=== PATIENT | female | born 1995 | race Caucasian/White ===

== ENCOUNTER 2019-09-27 11:48 | Emergency (ER) | payer OTHER, SELFPAY ==
[2019-09-27 11:55] VITALS: BP 120/59; PULSE 85; RESP 14; TEMP 36.4; O2SAT 98
--- NOTE | 2019-09-27 11:55 | ED.URI ---
HPI - URI/Sore Throat General Chief Complaint: Upper Respiratory Infection Stated Complaint: sore throat and ear pain Time Seen by Provider: 09/27/19 11:55 Source: patient and RN notes reviewed History of Present Illness HPI Narrative: Patient is a 24-year-old female presents the urgent care with complaints of left ear pain and sore throat. Patient states her symptoms started Friday with a sore throat and she woke up last night with left ear pain. Patient has been using [id number] eardrops to the left ear. Denies any known fever, nausea, vomiting. No other acute complaints. No acute distress noted. Patient aware the plan of care. Related Data Home Medications Medication Instructions Recorded Confirmed bupropion HCl 75 mg PO DAILY 09/27/19 09/27/19 etonogestrel [Nexplanon] SUBDERMAL 09/27/19 naproxen 500 mg PO BID PRN 09/27/19 09/27/19 sertraline 50 mg PO DAILY 09/27/19 09/27/19 Allergies Allergy/AdvReac Type Severity Reaction Status Date / Time amoxicillin Allergy Mild Hives / Verified 09/27/19 12:04 Red Face Penicillins Allergy Unknown Hives / Verified 09/27/19 12:04 Red Face [place] Allergy Severe Hives / Uncoded 04/02/19 09:49 Red Face Review of Systems Review of Systems: Narrative: CONSTITUTIONAL: Denies fever, chills, or sweats. EYES: Denies visual changes, redness, or discharge. ENT: Reports of left otalgia and sore throat CARDIOVASCULAR: Denies chest pain, palpitations, or edema. RESPIRATORY: Denies cough or dyspnea. GASTROINTESTINAL: Denies abdominal pain, nausea, vomiting, or diarrhea. GENITOURINARY: Denies dysuria or hematuria. SKIN: Denies rash or itching. MUSCULOSKELETAL: Denies back pain, joint pain, or myalgia. NEUROLOGIC: Denies headache, numbness, or weakness. All other systems reviewed are negative, except as documented in HPI. PMFSH Comments At the time of my signature, I reviewed and agree with the nursing past medical, surgical, social, and family history. There is no relevant family history pertinent to the patient complaint. Exam Narrative: Exam Narrative: GENERAL: This is a well-nourished, well-developed patient, in no apparent distress. HEAD: normocephalic, atraumatic. EYES: PERRL. Sclera clear/white. Vision is grossly intact. EARS: External ears normal, auditory canals clear and without drainage, mild fluid noted behind left TM without otitis, right TMs normal without perforation. Hearing grossly intact. NOSE: External nose normal with no obvious nasal discharge, nares without redness, no rhinorrhea. THROAT: Mucous membranes moist, moderate postnasal drainage NECK: Neck supple, non-tender without lymphadenopathy CARDIOVASCULAR: Regular rate and rhythm without murmurs, gallops, or rubs. RESPIRATORY: Clear to auscultation. Breath sounds equal bilaterally. No wheezes, rales, or rhonchi. SKIN: warm, intact with no suspicious lesions or rash, good texture and turgor. NEURO: awake, alert, and oriented to person, place and time. There were no obvious focal neurologic abnormalities. EXTREMITIES: No clubbing, cyanosis, or edema. Course Vital Signs Vital signs: Vital Signs Temperature 97.6 F 09/27/19 11:55 Pulse Rate 85 09/27/19 11:55 Respiratory Rate 14 09/27/19 11:55 Blood Pressure 120/59 L 09/27/19 11:55 Pulse Oximetry 98 09/27/19 11:55 Temperature 97.6 F 09/27/19 11:55 Pulse Rate 85 09/27/19 11:55 Respiratory Rate 14 09/27/19 11:55 Blood Pressure 120/59 L 09/27/19 11:55 Pulse Oximetry 98 09/27/19 11:55 Reviewed MDM - URI/Sore Throat MDM Narrative Medical decision making narrative: Reviewed lab results with the patient. She is aware that her strep swab was negative. Educated her on culture and we will call within 72 hours of culture is positive and antibiotics are necessary. Advised patient to use Claritin and ibuprofen [id number] for symptom relief and pain. May use warm compress to the left ear as needed for comfort. Do no
== END 2019-09-27 12:28 | disposition home or self-care (01) ==
PROVIDERS: Emergency Provider Nurse Practitioner Family
DX: J02.9 Acute pharyngitis, unspecified (principal)
CPT/HCPCS: 87081; 87880; 99213; G0463

== ENCOUNTER 2020-02-25 08:11 | Emergency (ER) | payer OTHER, SELFPAY ==
[2020-02-25 08:21] VITALS: BP 103/66; PULSE 117; RESP 14; TEMP 36.8; O2SAT 98
--- NOTE | 2020-02-25 08:24 | ED.URI ---
HPI - URI/Sore Throat General Chief Complaint: Upper Respiratory Infection Stated Complaint: Sore throat Time Seen by Provider: 02/25/20 08:40 Source: patient and RN notes reviewed Mode of arrival: ambulatory Limitations: no limitations History of Present Illness MD elicited complaint: sore throat Related Data Home Medications Medication Instructions Recorded Confirmed etonogestrel [Nexplanon] 1 implant SUBDERMAL ONCE 02/25/20 02/25/20 Allergies Allergy/AdvReac Type Severity Reaction Status Date / Time amoxicillin Allergy Mild Hives / Verified 02/25/20 08:36 Red Face Penicillins Allergy Unknown Hives / Verified 02/25/20 08:36 Red Face [place] Allergy Severe Hives / Uncoded 02/25/20 08:36 Red Face Review of Systems Review of Systems: Narrative: CONSTITUTIONAL: Denies malaise, chills, sweats, or fever. EYES: Denies visual changes, redness, or discharge. ENT: Reports rhinorrhea, sore throat. Denies congestion, sinus pain, otalgia. CARDIOVASCULAR: Denies chest pain, palpitations, or edema. RESPIRATORY: Reports cough. Denies dyspnea. GASTROINTESTINAL: Denies abdominal pain, nausea, vomiting, diarrhea SKIN: Denies rash or itching. MUSCULOSKELETAL: Denies myalgia. NEUROLOGIC: Reports headache. All systems reviewed & are unremarkable except as noted in HPI and below PMFSH Comments At time of signature, agree with nursing past medical, surgical, social and family history. There is no relevant family history pertinent to the presenting complaint Exam Narrative: Exam Narrative: GENERAL: Well-appearing, well-nourished, and in no acute distress. HEAD: Normocephalic EYES: PERRLA, conjunctivae clear ENT: Nares clear, turbinates erythematous, clear discharge. Mucous membranes moist. TM pearly perez with dull light reflex bilaterally; no tragal tenderness. Oropharynx mild erythematous without lesions. Tonsils not enlarged and without exudate, no drooling, no hoarseness, no trismus, uvula midline. NECK: Supple. No lymphadenopathy CHEST: Clear to auscultation, breath sounds equal. No wheezing, rhonchi, rales, or stridor. No respiratory distress, speaks in full sentences. Cough noted HEART: Regular rate and rhythm. No murmur heard. SKIN: Warm, dry, no rash. NEURO: Alert and oriented x3. PSYCH: Normal mood and affect Course Course Emergency Course: Patient is aware of diagnosis, understands and agrees to treatment plan. Anticipatory guidance given. Patient agrees to follow-up as directed and is aware of reasons to seek care at the emergency department. Portions of this record may have been created with voice recognition software Vital Signs Vital signs: Vital Signs Temperature 98.3 F 02/25/20 08:21 Pulse Rate 117 H 02/25/20 08:21 Respiratory Rate 14 02/25/20 08:21 Blood Pressure 103/66 02/25/20 08:21 Pulse Oximetry 98 02/25/20 08:21 Temperature 98.3 F 02/25/20 08:21 Pulse Rate 117 H 02/25/20 08:21 Respiratory Rate 14 02/25/20 08:21 Blood Pressure 103/66 02/25/20 08:21 Pulse Oximetry 98 02/25/20 08:21 Reviewed. MDM - URI/Sore Throat MDM Narrative Medical decision making narrative: Differential diagnosis considered: Strep pharyngitis, allergic rhinitis, upper respiratory tract infection, sinusitis, rhinosinusitis, nasopharyngitis. viral pharyngitis, otitis media, otitis externa, pneumonia, bronchitis, viral cough syndrome, viral syndrome, and influenza. Exam findings show no acute concerns or changes; patient is non-toxic appearing and is in no distress. Patient is appropriate for outpatient treatment and follow-up. Lab Data Attestation: I reviewed the patient's lab results. Labs: Strep Screen Presumptive Negative *(Reference Range: Negative)* Critical Care Time Critical Care Time Critical Care Time: No Discharge Plan Discharge Clinical Impression: Upper respiratory infection Qualifiers: URI type: unspecified URI Qualified Code(s): J06.9
== END 2020-02-25 08:55 | disposition home or self-care (01) ==
PROVIDERS: Emergency Provider Nurse Practitioner
DX: J06.9 Acute upper respiratory infection, unspecified (principal); Z20.828 Contact with and (suspected) exposure to other viral communicable diseases
CPT/HCPCS: 87081; 87880; 99213; G0463

== ENCOUNTER 2020-05-01 00:55 | Emergency (ER) | payer OTHER, SELFPAY ==
[2020-05-01 00:55] VITALS: BP 117/86; PULSE 84; RESP 20; TEMP 36.9; O2SAT 97
--- NOTE | 2020-05-01 01:18 | ED.SKABFB ---
HPI - Skin/Abscess/Foreign Bdy General Chief complaint: Skin/Abscess/Foreign Body Stated complaint: HIVES Time Seen by Provider: 05/01/20 01:18 History of Present Illness HPI narrative: 24-year-old female patient is here with chief complaints of breaking out in hives around midnight. She states that they are disappearing gradually. She is not sure what triggered them. She states she has had a similar episode in the past. Apparently patient had a by mild cough and felt some soreness in the throat and she called the hotline for her insurance and she was advised to come to the ER. She has not taken any Benadryl or any other medication to help prevent the itching. The patient is on control pills and has been on the same for a long time. There has been no new medications added to her regimen not has there been any changes in her diet. Patient does deny the feeling of tightness in her throat or in the chest. She denies any wheezing. Related Data Home Medications Medication Instructions Recorded Confirmed etonogestrel [Nexplanon] 1 implant SUBDERMAL ONCE 02/25/20 05/01/20 Allergies Allergy/AdvReac Type Severity Reaction Status Date / Time amoxicillin Allergy Mild Hives / Verified 02/25/20 08:36 Red Face Penicillins Allergy Unknown Hives / Verified 02/25/20 08:36 Red Face [place] Allergy Severe Hives / Uncoded 02/25/20 08:36 Red Face Review of Systems Review of Systems: All systems reviewed & are unremarkable except as noted in HPI and below PMFSH Past Medical History Medical History No pertinent past medical history Surgical History Surgical History No pertinent past surgical history Social History Social History (Updated 05/01/20 @ 01:24 by Keyonna New MD) Smoking status: Never smoker Alcohol intake: never Substance use: never Living arrangements: with family Exam Narrative: Exam Narrative: Patient is alert and oriented time place and person. She does not appear in any acute distress. Her vital signs are stable. HEENT is within normal limits. Oral mucous membranes are moist. The uvula is midline and there is no swelling noted to either of the uvula or to the mucosa around it. There is no stridor noted. Breath sounds are audible bilaterally and are not associated with any wheezes or rhonchi. There is no labored breathing or respiratory distress. There is no use of accessory muscles. Chest wall is nontender. Heart tones are normal. Abdomen is soft nontender. Extremities Sineff with Penilla within normal limits. Skin shows a few areas of high is that her mostly around the waist and fine form under the breasts bilaterally. Course Course Emergency Course: Patient has been encouraged to go home and take 1 dose of Benadryl. She is also advised to stay hydrated. She is advised to follow-up with her primary care physician as needed. Discharge Plan Discharge Clinical Impression: Urticaria Patient Disposition: Home, Self-Care Condition: Stable Instructions: Urticaria (ED) Additional Instructions: Home to rest Stay well hydrated Take benadryl for itching and may repeat in 6-8 hours Prescriptions: No Action Nexplanon 68 mg Implant 1 implant SUBDERMAL ONCE RF: 0 Follow-up/Referrals: UNKNOWN,DOCTOR [Primary Care Provider] - Time of Disposition: :29
[2020-05-01 01:29] VITALS: O2SAT 100
== END 2020-05-01 01:32 | disposition home or self-care (01) ==
PROVIDERS: Emergency Provider Emergency Medicine
DX: L50.9 Urticaria, unspecified (principal)
CPT/HCPCS: 99281; 99282

== ENCOUNTER 2020-11-21 16:09 | Emergency (ER) | payer OTHER, SELFPAY ==
--- NOTE | 2020-11-21 16:13 | ED.ABDPAIN ---
HPI - Abdominal Pain General Chief Complaint: Nausea/Vomiting/Diarrhea Stated Complaint: diarhhea and stomach pain Time Seen by Provider: 11/21/20 16:14 Source: patient and RN notes reviewed History of Present Illness HPI narrative: Patient is a 25-year-old female who presents the urgent care with complaints of diarrhea and intermittent abdominal cramps. Patient states that it started on Friday and she was having multiple watery loose stools. Patient states in the last 24 hours she has had 1 loose stool last night. States that symptoms seem to be improving but her wanted her to be seen . Patient states she typically has loose stools when she is on her menstrual cycle, which she started 2 days ago. Patient denies of any abdominal history. Denies of diverticulitis, IBS or colitis. Patient is currently denying abdominal pains. Denies of any urinary symptoms. Denies of blood in the stool. Patient states that she initially did try Tums and has been taking Tylenol for her menstrual cramping. Patient states she has been able to keep down her last meal of macaroni and cheese as well as water throughout the day. No other acute complaints. No acute distress noted. Patient aware of the plan of care. Some parts of this dictation were generated by voice recognition software and may contain typographical and/or grammatical inaccuracies. Related Data Home Medications Medication Instructions Recorded Confirmed etonogestrel [Nexplanon] 1 implant SUBDERMAL ONCE 02/25/20 11/08/20 naproxen 500 mg tablet 500 mg PO BID tablet 05/03/20 11/08/20 Allergies Allergy/AdvReac Type Severity Reaction Status Date / Time amoxicillin Allergy Mild Hives / Verified 11/08/20 11:46 Red Face Penicillins Allergy Unknown Hives / Verified 11/08/20 11:46 Red Face [place] Allergy Severe Hives / Uncoded 11/08/20 11:46 Red Face Review of Systems Review of Systems: Narrative: CONSTITUTIONAL: Denies fever, chills, or sweats. EYES: Denies visual changes, redness, or discharge. ENT: Denies rhinorrhea, congestion, sore throat, or otalgia. CARDIOVASCULAR: Denies chest pain, palpitations, or edema. RESPIRATORY: Denies cough or dyspnea. GASTROINTESTINAL: Reports of diarrhea and intermittent abdominal cramping GENITOURINARY: Denies dysuria or hematuria. SKIN: Denies rash or itching. MUSCULOSKELETAL: Denies back pain, joint pain, or myalgia. NEUROLOGIC: Denies headache, numbness, or weakness. All other systems reviewed are negative, except as documented in HPI. [facility] Past Medical History Medical History Anxiety state, unspecified Borderline personality disorder Depression History of drug overdose History of suicide attempt Personality disorder Social History Social History Smoking status: Never smoker Alcohol intake: never Substance use: never Gender identity (if verbalized by the patient): Female Comments At the time of my signature, I reviewed and agree with the nursing past medical, surgical, social, and family history. There is no relevant family history pertinent to the patient complaint. Exam Narrative: Exam Narrative: GENERAL: This is a well-nourished, well-developed patient, in no apparent distress. HEAD: normocephalic, atraumatic. EYES: PERRL. Sclera clear/white. Vision is grossly intact. EARS: External ears normal NOSE: External nose normal with no obvious nasal discharge, nares without redness, no rhinorrhea. THROAT: Mucous membranes moist, posterior pharynx clear. NECK: Neck supple CARDIOVASCULAR: Regular rate and rhythm without murmurs, gallops, or rubs. RESPIRATORY: Clear to auscultation. Breath sounds equal bilaterally. No wheezes, rales, or rhonchi. GASTROINTESTINAL: Abdomen soft, non-tender, nondistended. Bowel sounds are active. No guarding. SKIN: warm, intact with no suspicious lesions or rash,
[2020-11-21 16:15] VITALS: BP 116/78; PULSE 84; RESP 16; TEMP 37.4; O2SAT 99
== END 2020-11-21 16:32 | disposition home or self-care (01) ==
PROVIDERS: Emergency Provider Nurse Practitioner Family
DX: R19.7 Diarrhea, unspecified (principal)
CPT/HCPCS: 99211; G0463

== ENCOUNTER 2021-03-07 08:56 | Emergency (ER) | payer OTHER, SELFPAY ==
--- NOTE | ~2021-03-07 | XR_ITS ---
EXAMINATION: XR chest 2V DATE: 03/07/2021 10:07 INDICATION: Midsternal chest pain TECHNIQUE: PA and lateral views of the chest are obtained. COMPARISON: 01/18/2015 FINDINGS: The lungs are free of acute opacities. There is no pleural effusion or pneumothorax. The ca rdiomediastinal silhouette is normal. There is mild lumbar levocurvature. IMPRESSION: 1. No acute cardiopulmonary abnormality. Reviewed, dictated and finalized at location B.
--- NOTE | 2021-03-07 09:01 | ED.CHESTPAIN ---
HPI - Chest Pain General Chief Complaint: Chest Pain Stated Complaint: CHEST PAIN Time Seen by Provider: 03/07/21 09:01 Source: patient Mode of arrival: ambulatory Limitations: no limitations History of Present Illness HPI narrative: 25-year-old woman comes in today complaining of sternal chest pain which is sharp with inspiration since approximately 730 this morning. She states that she has tenderness to palpation of her sternum. She has no difficulty breathing, shortness of breath, cough, congestion, vomiting, sputum production, fever, or back pain. She denies recent trauma. States that her last period was the January. She had a negative test earlier this week. She states that she has had nausea for the last 10 days. MD complaint: chest pain Onset (ago): hour(s) Timing of current episode: episodic Prior episodes: No Onset: during rest Pain location: substernal Pain radiation: none Severity: moderate Quality: sharp Relieving factors: nothing Exacerbating factors: inspiration Associated symptoms: nausea Treatment prior to arrival: none Risk Factors Coronary artery disease risk factors: none Thoracic aortic dissection risk factors: none Related Data Allergies Allergy/AdvReac Type Severity Reaction Status Date / Time amoxicillin Allergy Mild Hives / Verified 03/07/21 09:11 Red Face Penicillins Allergy Unknown Hives / Verified 03/07/21 09:11 Red Face [place] Allergy Severe Hives / Uncoded 11/08/20 11:46 Red Face Review of Systems Review of Systems: All systems reviewed & are unremarkable except as noted in HPI and below Constitutional: Constitutional: Denies chills, Denies fever(s) and Denies weakness Eyes: Eyes: Denies change in vision and Denies photophobia ENT: Denies nasal congestion and Denies sore throat Cardiovascular: Cardiovascular: Reports chest pain and Denies radiating jaw, neck or arm pain Respiratory: Respiratory: Denies cough, Denies dyspnea and Denies wheezing Gastrointestinal: Gastrointestinal: Reports as per HPI, Denies abdominal pain, Reports nausea and Denies vomiting Genitourinary: Genitourinary: Denies nocturia and Denies dysuria Musculoskeletal: Musculoskeletal: Denies back pain, Denies arthralgias and Denies joint swelling Integumentary/Breasts: Skin/Breast: Denies pruritus, Denies erythema and Denies rash Neurologic: Denies vertigo, Denies dizziness and Denies syncope Hematologic/Lymphatic: Hematologic/Lymphatic: Denies easy bleeding and Denies easy bruising Allergic/Immunologic: Allergic/Immunologic: Denies lip swelling and Denies throat swelling PMFSH Past Medical History Medical History Anxiety state, unspecified Borderline personality disorder Depression History of drug overdose History of suicide attempt Personality disorder Social History Social History Smoking status: Never smoker Alcohol intake: never Substance use: never Gender identity (if verbalized by the patient): Female Exam Const: General: healthy appearing, no acute distress and alert Orientation/consciousness: patient oriented x3 Limitations: no limitations HENMT: Head: normal to inspection Face and sinus: normal facial exam Mouth: Yes moist mucous membranes Throat: posterior oropharynx normal Eyes: Conjunctivae: conjunctivae normal Pupils: Equal, round and reactive pupils present EOM: EOMs intact bilaterally Resp: Effort & Inspection: normal respiratory effort and not labored Auscultation: clear to auscultation bilaterally, no rales, no rhonchi and no wheezes Cardio: Rate: regular rate Rhythm: regular rhythm Heart sounds: no murmurs GI: GI Palp: Yes Soft to palpation and No Tenderness to palpation present (GI) Skin: General skin exam: normal color, no jaundice and no pallor Rashes: no rashes Neuro: General: patient oriented x3, moves all
--- NOTE | 2021-03-07 09:02 | ECG_ITS ---
Measurements Intervals [place] Rate: 74 P: 75 SD: 139 QRS: 82 QRSD: 98 T: 71 QT: 377 QTc: 419 Interpretive Statements SINUS RHYTHM DELAYED PRECORDIAL R/S TRANSITION BASELINE WANDER- I, V1-V3 BORDERLINE ECG Electronically Signed On 03-07-2021 10:44:32 CDT by Diomedes Pascual D.O.
[2021-03-07 09:03] VITALS: BP 117/84; PULSE 79; RESP 16; TEMP 36.5; O2SAT 98
[2021-03-07 09:28] LABS: Basophils Absolute Auto 0.04 K/mm3 (0.00-0.10); Basophils Percent Auto 0.6 % (0.0-1.0); Eosinophils Absolute Auto 0.19 K/mm3 (0.02-0.50); Eosinophils Percent Auto 2.8 % (1.0-6.0); Hematocrit 45.7 % (35.0-49.0); Hemoglobin 15.6 g/dL (12.0-15.0); Immature Granulocyte Absolute 0.02 K/mm3 (0.00-0.00); Immature Granulocyte Percent A 0.3 % (0.0-0.0); Lymphocytes Percent Auto 23.7 % (18.0-42.0); Mean Corpuscular HGB Conc 34.1 g/dL (32.0-36.0); Mean Corpuscular Volume 87.9 fL (78.0-102.0); Mean Platelet Volume 10.9 fl (9.2-11.8); Monocytes Absolute Auto 0.43 K/mm3 (0.10-0.90); Monocytes Percent Auto 6.4 % (2.0-11.0); Neutrophils Absolute Auto 4.5 K/mm3 (1.7-7.2); Neutrophils Percent Auto 66.2 % (50.0-70.0); Platelet Count Result 178 K/mm3 (150-420); Red Cell Distribution Width 11.3 % (11.6-14.4); White Blood Count 6.7 K/mm3 (4.8-10.8)
[2021-03-07 09:30] LABS: Appearance Urine Sl Cloudy (Clear); Bilirubin Urine Negative (Negative); Color Urine Yellow (Yellow); Glucose Urine UA Negative (Negative); Ketones Urine Negative (Negative); Leukocyte Esterase Ur Negative LEU/UL (Negative); Nitrate Urine Negative (Negative); Protein Urine Negative (Negative); Specific Grav Ur >= 1.030 (1.010-1.020); Urobilinogen Urine 0.2 mg/dL (0.2-1.0)
[2021-03-07 09:35] LABS: Add Urine Microscopic? YES; Blood Urine Trace-Intact (Negative); RBC Urine 0-2 /hpf (0-2); Squamous Epithelial Cell Urine Moderate /hpf (Few); WBC Urine None seen /hpf (0-3)
[2021-03-07 09:36] LABS: Bacteria Urine 1+ /hpf
[2021-03-07 09:37] LABS: Mucus Urine Moderate /lpf
[2021-03-07 09:38] LABS: Pregnancy On Board Control Positive; Urine Pregnancy Test Negative
[2021-03-07 09:41] LABS: D Dimer 0.19 mg/L (0.19-0.50)
--- NOTE | 2021-03-07 09:52 | PC.NURSE ---
pt resting quietly. no change in c/p c/o. resp even and non-labored. denies sob.
[2021-03-07 09:56] LABS: Alanine Aminotransferase 26 U/L (14-59); Albumin Level 4.3 g/dL (3.4-5.0); Alkaline Phosphatase 57 U/L (46-116); Anion Gap 9 mmol/L (8-16); Aspartate Amino Transferase 16 U/L (15-37); Bilirubin,Total 0.9 mg/dL (0.00-1.00); Blood Urea Nitrogen 10 mg/dL (7-18); Calcium 9.2 mg/dL (8.5-10.1); Carbon Dioxide 27 mmol/L (21-32); Chloride 106 mmol/L (98-108); Estimated CRCL calculation 109 ml/min; Estimated Glomerular Filt Rate > 60; Glucose 93 mg/dL (70-99); Osmolality Calculated 293 mOsm/kg (285-295); Potassium 3.9 mmol/L (3.5-5.1); Sodium 142 mmol/L (136-145); Total Protein 8.5 g/dL (6.4-8.2)
[2021-03-07 09:58] LABS: Troponin I < 4.0 ng/L (0.00-60.4)
--- NOTE | 2021-03-07 10:47 | PC.NURSE ---
pt resting per cot. no complaints voiced at this time
[2021-03-07] MEDS: MAG HYDROX/ALUMINUM HYD/SIMETH 30 ML, PHENobarb/HYOSCY/ATROPINE/SCOP 32.4 MG, LIDOCAINE... PO (10:55)
--- NOTE | 2021-03-07 10:57 | PC.NURSE ---
pt complaint of still hurting in the chest, erp dr riley notified. gi cocktail given as ordered. encouraged pt to use call cortes as neededl.
[2021-03-07 11:19] VITALS: BP 110/75; PULSE 70; RESP 20; O2SAT 98
== END 2021-03-07 11:21 | disposition home or self-care (01) ==
PROVIDERS: Emergency Provider Emergency Medicine; PCP Family Medicine
DX: R07.9 Chest pain, unspecified (principal)
CPT/HCPCS: 36415; 71046; 80053; 81001; 81025; 84484; 85025; 85380; 93005; 99283; 99284; A9270

== ENCOUNTER 2021-04-28 14:28 | Emergency (ER) | payer OTHER, SELFPAY ==
[2021-04-28 14:37] VITALS: BP 121/74; PULSE 89; RESP 16; TEMP 36.4; O2SAT 100
--- NOTE | 2021-04-28 15:32 | ED.GENADULT ---
HPI - General Adult General Chief complaint: Allergic Reaction Stated complaint: left arm bee sting Time Seen by Provider: 04/28/21 15:21 Source: patient and RN notes reviewed Mode of arrival: ambulatory Limitations: no limitations History of Present Illness HPI narrative: Patient presents today after she was stung by a bee on her left upper arm yesterday at 8:30 in the morning. She reports some itching, pain, redness. She also reports some joint pain in her left arm from the shoulder down to the fingers. She currently rates her pain 5/10 and has been trying several things at home to include Benadryl, Tylenol, hydrocortisone cream, leftover triamcinolone cream from her last bee sting, Caladryl, ice and heat, baking soda and water. The Tylenol and Benadryl are helping slightly, but the rest of the interventions are not helping much. MD complaint: Bee sting to left arm Related Data Allergies Allergy/AdvReac Type Severity Reaction Status Date / Time amoxicillin Allergy Mild Hives / Verified 04/05/21 13:39 Red Face Penicillins Allergy Unknown Hives / Verified 04/05/21 13:39 Red Face [place] Allergy Severe Hives / Uncoded 04/05/21 13:39 Red Face Review of Systems Review of Systems: CONSTITUTIONAL: Denies body aches, fever, chills, or sweats. EYES: Denies visual changes, redness, or discharge. ENT: Denies rhinorrhea, congestion, sore throat, or otalgia. CARDIOVASCULAR: Denies chest pain, palpitations, or edema. RESPIRATORY: Denies cough or dyspnea. GASTROINTESTINAL: Denies abdominal pain, nausea, vomiting, or diarrhea. GENITOURINARY: Denies dysuria or hematuria. SKIN: Denies rash, itching, or wounds.+ Bee sting to left arm MUSCULOSKELETAL: Denies back pain, joint pain, or myalgia. NEUROLOGIC: Denies headache, numbness, tingling, or weakness. PSYCH: Denies depression or anxiety. [facility] Past Medical History Medical History Anxiety state, unspecified Borderline personality disorder Depression History of drug overdose History of suicide attempt Personality disorder Social History Social History Smoking status: Never smoker Alcohol intake: never Substance use: never Gender identity (if verbalized by the patient): Female Comments At time of signature, I have reviewed and agree with nursing past medical, surgical, social and family history unless otherwise noted. Please see nursing chart for further information. There is no relevant family history pertinent to the presenting complaint Exam Narrative: GENERAL: Well-appearing, well-nourished, and in no acute distress. HEAD: Normocephalic, atraumatic. EYES: EOMI. No redness or drainage. Conjunctivae normal. ENT: Mucous membranes pink and moist. NECK: Normal AROM. CHEST: No respiratory distress. EXTREMITIES: Normal range of motion. No edema. SKIN: Warm, dry, no rash. Capillary refill normal. Normal skin turgor. 18 x 21 cm area of erythema and localized edema to the left medial upper arm with puncture wound up near the axilla. No signs of bacterial infection. Nontender to palpation. Full range of motion of all joints of the left arm. Distal sensation intact. Capillary refill normal. Radial pulse normal. NEURO: No focal deficits. Alert and oriented x3. Gait steady. PSYCH: Normal affect. No signs of depression or anxiety. Course Vital Signs Vital signs: Vital Signs Temperature 97.6 F 04/28/21 14:37 Pulse Rate 89 04/28/21 14:37 Respiratory Rate 16 04/28/21 14:37 Blood Pressure 121/74 04/28/21 14:37 Pulse Oximetry 100 04/28/21 14:37 Temperature 97.6 F 04/28/21 14:37 Pulse Rate 89 04/28/21 14:37 Respiratory Rate 16 04/28/21 14:37 Blood Pressure 121/74 04/28/21 14:37 Pulse Oximetry 100 04/28/21 14:37 Reviewed. Pt has been instructed to follow up with her PCP regarding her elevated blood pressure to
== END 2021-04-28 15:53 | disposition home or self-care (01) ==
PROVIDERS: Emergency Provider Nurse Practitioner
DX: T63.441A Toxic effect of venom of bees, accidental (unintentional), initial encounter (principal)
CPT/HCPCS: 99213; G0463

== ENCOUNTER 2021-07-21 16:56 | Emergency (ER) | payer OTHER, SELFPAY ==
[2021-07-21 17:00] VITALS: BP 118/56; PULSE 97; RESP 20; TEMP 36.9; O2SAT 98
--- NOTE | 2021-07-21 17:10 | ED.FEMALEGU ---
HPI - Female Genitourinary General Chief complaint: Urogenital-Female Stated complaint: blood in urine, pain while urinating Time Seen by Provider: 07/21/21 17:10 Source: patient History of Present Illness HPI Narrative: 25-year-old with a history of kidney stone, , insulin on placed in 2018 and removed in December 2020 presents to the ER with -- suprapubic pain and right flank pain since yesterday -- dysuria with hematuria no fever LMP 7 days ago. MD elicited complaint: dysuria Onset (ago): day(s) ( One day) Location of symptoms: suprapubic and flank Severity: mild Quality of pain: burning Vaginal discharge: none Vaginal bleeding: none Urinary symptoms: Dysuria and Hematuria Exacerbating factors: none Relieving factors: none Associated symptoms: denies other symptoms Patient : No Possible : unsure if Related Data Allergies Allergy/AdvReac Type Severity Reaction Status Date / Time amoxicillin Allergy Mild Hives / Verified 04/05/21 13:39 Red Face Penicillins Allergy Unknown Hives / Verified 04/05/21 13:39 Red Face bee venom protein (honey bee) Allergy Anaphylaxis Verified 07/21/21 17:30 [bees] [place] Allergy Severe Hives / Uncoded 04/05/21 13:39 Red Face Review of Systems Review of Systems: All systems reviewed & are unremarkable except as noted in HPI and below Constitutional: Constitutional: Reports as per HPI and Reports no additional constitutional complaints Eyes: Eyes: Reports as per HPI and Reports no additional eye complaints ENT: Reports system reviewed and no additional complaints, except as documented Cardiovascular: Cardiovascular: Reports as per HPI and Reports no additional cardiovascular complaints Respiratory: Respiratory: Reports as per HPI and Reports no additional respiratory complaints Gastrointestinal: Gastrointestinal: Reports as per HPI and Reports no additional gastrointestinal complaints Genitourinary: Genitourinary: Reports no additional female genitourinary complaints, Reports hematuria and Reports dysuria Musculoskeletal: Musculoskeletal: Reports no additional musculoskeletal complaints Integumentary/Breasts: Skin/Breast: Reports system reviewed and no additional complaints, except as docu Neurologic: Reports system reviewed and no additional complaints, except as documented Psychiatric: Psychiatric: Reports no additional psychiatric complaints Endocrine: Endocrine: Reports no additional endocrine complaints PMFSH Past Medical History Medical History Anxiety state, unspecified Borderline personality disorder Depression History of drug overdose History of suicide attempt Personality disorder Social History Social History Smoking status: Never smoker Alcohol intake: never Substance use: never Gender identity (if verbalized by the patient): Female Exam Const: General: no acute distress Orientation/consciousness: patient oriented x3 HENMT: Head: normal to inspection Eyes: Conjunctivae: conjunctivae normal Pupils: Equal, round and reactive pupils present Neck: Neck: normal visual inspection and no lymphadenopathy Chest: Chest palpation & inspection: normal inspection of the chest Resp: Effort & Inspection: normal respiratory effort Auscultation: clear to auscultation bilaterally Cardio: Rate: regular rate Rhythm: regular rhythm GI: GI Palp: Yes Soft to palpation : General: Yes no CVA tenderness Back/Spine/Pelvis: Back: no CVA tenderness Skin: General skin exam: normal color Rashes: no rashes Neuro: General: patient oriented x3 and moves all extremities Extrem: General: normal to inspection Psych: Mental Status: mental status grossly normal Affect: normal affect Thought content: Yes Normal thought content present Course Course Emergency Course: Patient's course was unremark
[2021-07-21 17:25] LABS: Add Urine Microscopic? YES; Appearance Urine Cloudy (Clear); Bilirubin Urine Negative (Negative); Blood Urine 3+ (Negative); Color Urine Light Yellow (Yellow); Glucose Urine UA Negative (Negative); Ketones Urine Negative (Negative); Leukocyte Esterase Ur 1+ (Negative); Nitrate Urine Positive (Negative); Protein Urine 2+ (Negative); Urobilinogen Urine 0.2 mg/dL (0.2-1.0)
[2021-07-21 17:32] LABS: Amorphous Sediment Urine Few; Bacteria Urine 4+ /hpf; Squamous Epithelial Cell Urine Moderate /hpf (Few); Urine Pregnancy Test Negative; WBC Urine 31-50 /hpf (0-3)
[2021-07-21 17:33] LABS: Pregnancy On Board Control Positive
[2021-07-21 18:11] VITALS: BP 118/56; PULSE 87; RESP 20; TEMP 36.9; O2SAT 98
--- NOTE | 2021-07-25 11:26 | PC.NURSE ---
urine culture report received and reviewed by erp. ABX changed required. pt's pmd contacted and notified of treatment change. new prescription of Levaquin 500mg po qd for 5 days called in to pt's pharmacy...[facility] in [place]. 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 pt also instructed to f/u with pmd
== END 2021-07-21 18:12 | disposition home or self-care (01) ==
PROVIDERS: Emergency Provider Internal Medicine Critical Care Medicine; PCP Family Medicine
DX: N30.01 Acute cystitis with hematuria (principal); R10.9 Unspecified abdominal pain
CPT/HCPCS: 81001; 81025; 87077; 87086; 87088; 87186; 99283; A9270

== ENCOUNTER 2021-11-30 16:38 | Emergency (ER) | payer OTHER, SELFPAY ==
[2021-11-30 16:42] VITALS: BP 106/80; PULSE 73; RESP 14; TEMP 36.7; O2SAT 99
--- NOTE | 2021-11-30 17:36 | ED.NAVMDI ---
HPI - Nausea/Vomiting/Diarrhea General Chief complaint: Nausea/Vomiting/Diarrhea Stated complaint: vomiting Time Seen by Provider: 11/30/21 17:37 Source: patient and RN notes reviewed Mode of arrival: ambulatory Limitations: no limitations History of Present Illness HPI Narrative: patient is 7 weeks and has been having vomiting for the last 2 days unable to keep her Zofran down. Called her cafeteria operator who said if she has not urinated in 6 hours she should come to the emergency room. Otherwise no other complaints. MD elicited complaint: nausea and vomiting Onset (ago): day(s) (2) Description of vomiting: food contents and bilious Associated nausea: Yes Associated abdominal pain: No Exacerbating factors: none Relieving factors: none Context: other () Associated symptoms: denies other symptoms Related Data Home Medications Medication Instructions Recorded Confirmed ondansetron HCl 4 mg PO PRN PRN 11/30/21 11/30/21 Allergies Allergy/AdvReac Type Severity Reaction Status Date / Time almond Allergy Severe Hives/RED Verified 11/30/21 17:24 FACE bee venom protein (honey bee) Allergy Severe Anaphylaxis Verified 11/30/21 17:24 [bees] amoxicillin Allergy Mild Hives / Verified 11/30/21 17:24 Red Face Penicillins Allergy Unknown Hives / Verified 11/30/21 17:24 [place] Review of Systems Review of Systems: All systems reviewed & are unremarkable except as noted in HPI and below PMFSH Past Medical History Medical History Anxiety state, unspecified Borderline personality disorder Depression History of drug overdose History of suicide attempt Personality disorder Social History Social History Smoking status: Never smoker Alcohol intake: never Substance use: never Gender identity (if verbalized by the patient): Female Exam Const: General: healthy appearing, no acute distress and alert Nutritional Appearance: well nourished Orientation/consciousness: patient oriented x3 Other: Female nurse in room during examination. HENMT: Head: normal to inspection Ears: external ears normal Face and sinus: normal facial exam Mouth: Yes moist mucous membranes Eyes: Cornea: corneas normal Pupils: Equal, round and reactive pupils present EOM: EOMs intact bilaterally Neck: Neck: normal visual inspection Resp: Effort & Inspection: normal respiratory effort Auscultation: clear to auscultation bilaterally Cardio: Rate: regular rate Rhythm: regular rhythm GI: GI Palp: Yes Soft to palpation, Yes Tenderness to palpation present (GI) ( mild sore muscles from vomiting), No Guarding due to palpation present (GI) and No Rebound tenderness present Auscultation: normal bowel sounds Back/Spine/Pelvis: Cervical Spine: cervical ROM normal Thoracic/Lumbar Spine: thoraco-lumbar ROM normal Skin: General skin exam: normal color Rashes: no rashes Neuro: General: patient oriented x3, moves all extremities, no meningeal signs, no focal motor deficits and CN's II-XI intact bilaterally Speech: normal speech Gait exam (Neuro): Normal gait present Extrem: General: normal to inspection and no clubbing, cyanosis or edema Psych: Appearance: grossly normal and well kempt Mental Status: mental status grossly normal Affect: normal affect Attitude: cooperative Course Course Emergency Course: patient improved after IV Reglan and 1 L of fluids. I will prescribe her some Reglan for home. Vital Signs Vital signs: Vital Signs Temperature 36.7 C 11/30/21 16:42 Pulse Rate 73 11/30/21 16:42 Respiratory Rate 14 11/30/21 16:42 Blood Pressure 106/80 11/30/21 16:42 Pulse Oximetry 99 11/30/21 16:42 Temperature 36.7 C 11/30/21 16:42 Pulse Rate 73 11/30/21 16:42 Respiratory Rate 14 11/30/21 16:42 Blood Pressure 106/80 11/30/21 16:42 Pulse Oximetry 99 11/30/21 16:42
[2021-11-30] MEDS: METOCLOPRAMIDE HCL INJ 10 MG/2 ML VIAL (17:43)
[2021-11-30] MEDS: SODIUM CHLORIDE 0.9% IV 1,000 ML 999 ML (17:44)
--- NOTE | 2021-11-30 17:45 | PC.NURSE ---
PT IS RESTING ON STRETCHER WITH IVF INFUSING ORDERED WITHOUT DIFFICULTY. WARM BLANKET PROVIDED. EMESIS BAG PROVIDED. WILL CONTINUE TO MONITOR.
--- NOTE | 2021-11-30 18:29 | PC.NURSE ---
NO EMESIS NOTED DURING ED VISIT. PT REPORTED SX HAVE IMPROVED POST MEDICATION AND IVF.
[2021-11-30 18:30] VITALS: BP 101/69; PULSE 64; RESP 14; O2SAT 98
== END 2021-11-30 18:30 | disposition home or self-care (01) ==
PROVIDERS: Emergency Provider Emergency Medicine; PCP Family Medicine
DX: O21.0 Mild hyperemesis gravidarum (principal)
CPT/HCPCS: 96361; 96374; 99284; J2765; J7030

== ENCOUNTER 2021-12-06 14:41 | Outpatient (CLI) | payer OTHER, SELFPAY ==
--- NOTE | ~2021-12-06 | US_ITS ---
EXAMINATION: US OB <= 14 weeks fetus DATE: 12/06/2021 15:01 INDICATION: . TECHNIQUE: Real-time transabdominal pelvic ultrasound was performed. COMPARISON: None. FINDINGS: The uterus measures 9.9 x 8.7 x 6.7 cm. There is an intrauterine gestational sac. A yolk sac is ident ified. The crown rump length measures 2.6 cm, which correlates with an estimated gestational a ge of 9 weeks and 2 day(s) (+/-) 6 day(s). heart motion is identified measuring 188 beats per m inute (bpm) by M-mode Doppler. The right ovary measures 2.4 x 2.9 x 1.9 cm. The left ovary is not vis ualized. There is no free fluid in the pelvis. IMPRESSION: 1. Single living intrauterine gestation with estimated date of delivery of 07/09/2022. Reviewed, dictated and finalized at location A. IMPRESSION: 1. Single living intrauterine gestation with estimated date of delivery of .
== END 2021-12-06 14:42 | disposition home or self-care (01) ==
LOC: CHSIMG 14:42
PROVIDERS: PCP Family Medicine; Visit Provider Nurse Practitioner Family
DX: Z32.01 Encounter for pregnancy test, result positive (principal)
CPT/HCPCS: 76801

== ENCOUNTER 2021-12-10 12:50 | Emergency (ER) | payer OTHER, SELFPAY ==
[2021-12-10 13:11] VITALS: BP 106/72; PULSE 79; RESP 16; TEMP 36.1; O2SAT 99
--- NOTE | 2021-12-10 13:17 | ED.GENADULT ---
HPI - General Adult General Chief complaint: Unspecified Stated complaint: PREG AND DEHYDRATED Time Seen by Provider: 12/10/21 13:11 History of Present Illness HPI narrative: 26-year-old female patient with10 weeks of gestation, para 2 1 is here for IV fluids. Patient apparently has had hyperemesis gravidarum and was seen by her brand marketing coordinator this morning. She has been using Zofran without much relief and was given Phenergan today which she has not taken yet. She was also diagnosed with a UTI and has an antibiotic prescription but has been advised not to start that until she started keeping some liquids down. She states that she is unable to hold even water down. She denies any abdominal pain. She denies any diarrhea. She denies any lightheadedness or any other symptoms. Last Zofran was at 6:30 a.m. this morning. Related Data Home Medications Medication Instructions Recorded Confirmed ondansetron HCl 4 mg PO PRN PRN 11/30/21 12/10/21 Phenergan 25 mg DAILY PRN 12/10/21 12/10/21 Allergies Allergy/AdvReac Type Severity Reaction Status Date / Time almond Allergy Severe Hives/RED Verified 11/30/21 17:24 FACE bee venom protein (honey bee) Allergy Severe Anaphylaxis Verified 11/30/21 17:24 [bees] amoxicillin Allergy Mild Hives / Verified 11/30/21 17:24 [place] Penicillins Allergy Unknown Hives / Verified 11/30/21 17:24 [place] Review of Systems Review of Systems: All systems reviewed & are unremarkable except as noted in HPI and below Constitutional: Constitutional: Reports no additional constitutional complaints Eyes: Eyes: Reports no additional eye complaints ENT: Reports system reviewed and no additional complaints, except as documented Cardiovascular: Cardiovascular: Reports no additional cardiovascular complaints Respiratory: Respiratory: Reports no additional respiratory complaints Gastrointestinal: Gastrointestinal: Denies abdominal pain, Denies belching, Denies bloating, Denies change in stool character, Denies constipation, Denies heartburn and Denies hematemesis Genitourinary: Genitourinary: Reports no additional female genitourinary complaints Musculoskeletal: Musculoskeletal: Reports no additional musculoskeletal complaints Integumentary/Breasts: Skin/Breast: Reports system reviewed and no additional complaints, except as docu Neurologic: Reports system reviewed and no additional complaints, except as documented Psychiatric: Psychiatric: Reports no additional psychiatric complaints [facility] Past Medical History Medical History Anxiety state, unspecified Borderline personality disorder Depression History of drug overdose History of suicide attempt Personality disorder Social History Social History Smoking status: Never smoker Alcohol intake: never Substance use: never Gender identity (if verbalized by the patient): Female Exam Const: General: cooperative, healthy appearing, comfortable, no acute distress, well developed, alert, awake and Physically active Nutritional Appearance: average body habitus and well nourished Orientation/consciousness: oriented to person, oriented to place and oriented to time Limitations: no limitations HENMT: Head: normal to inspection and normocephalic Ears: external ears normal General nose exam: Normal external nose present and Normal nares present Face and sinus: normal facial exam and No dry mucous membranes Mouth: Yes Normal oral and palatal mucosa present, Yes lip normal, Yes tongue normal, Yes oropharynx normal and Yes moist mucous membranes Throat: posterior oropharynx normal Eyes: General: appearance normal, both eyes and all related structures Eyelids: eyelids normal Conjunctivae: conjunctivae normal Sclera: sclerae normal Pupils: Equal, round and reactive pupils present EOM: EOMs intact bilaterally Neck: Neck: no
[2021-12-10] MEDS: LACTATED RINGERS 1,000 ML 999 ML IV CONT (13:32)
[2021-12-10] MEDS: ONDANSETRON HCL ODT 4 MG TABLET PO (13:32)
--- NOTE | 2021-12-10 13:34 | PC.NURSE ---
Pt medicated per ERP order. Pt given ice chips for PO challenge.
--- NOTE | 2021-12-10 13:41 | PC.NURSE ---
Pt to be discharged after IVF infusion is complete.
--- NOTE | 2021-12-10 14:14 | PC.NURSE ---
Pt did not vomit while in ER.
== END 2021-12-10 14:14 | disposition home or self-care (01) ==
PROVIDERS: Emergency Provider Emergency Medicine; PCP Family Medicine
DX: O21.0 Mild hyperemesis gravidarum (principal)
CPT/HCPCS: 96360; 99283; A9270; J7120

== ENCOUNTER 2022-02-04 09:17 | Outpatient (CLI) | payer OTHER, SELFPAY ==
--- NOTE | ~2022-02-04 | US_ITS ---
EXAMINATION: US OB /maternal detail DATE: 02/04/2022 10:34 INDICATION: anatomic survey. TECHNIQUE: Real-time ultrasound of the pelvis was performed. COMPARISON: Ultrasound 12/06/2021 FINDINGS: There is a single living fetus in breech presentation. The placenta is posterior. heart rate i s 159 beats per minute (bpm). The amniotic fluid volume is subjectively normal. The following biometric data were obtained: Biparietal diameter (BPD): 3.9 cm; head circumference (HC): 15.0 cm; abdominal circumference (AC): 12 .7 cm; femur length (FL): 2.7 cm. These measurements are concordant. Estimated weight is 228 g +/- 34 g, which correlates with the 31st percentile when 07/05/22 is u sed as estimated date of delivery. As single measurements, these parameters are each equal to the following estimated gestational ages: BPD: 17 weeks 6 days. HC: 18 weeks 0 days. AC: 18 weeks 2 days. FL: 18 weeks 1 days. estimated gestational age based solely on measurements from this exam is 18 weeks 1 days +/- 1 weeks 2 days. The cerebral ventricles, cerebellum, cisterna magna, nuchal fold, lip, and visualized portions of the spine are normal. The heart is normal. The diaphragm, stomach, kidneys, and bladder are normal. Ther e are two umbilical arteries to yield a 3-vessel cord. The cord insertion is normal. IMPRESSION: 1. Single living fetus in breech presentation. 2. Estimated weight is 228 g +/- 34 g, which correlates with the 31st percentile when 07/05/22 is used as estimated date of delivery. Note that the ultrasound from 12/06/2021 suggested an estimated date of delivery of 07/09/2022. 3. Normal anatomic survey. Reviewed, dictated and finalized at location A. IMPRESSION: 1. Single living fetus in breech presentation. 2. Estimated weight is 228 g +/- 34 g, which correlates with the 31st pe rcentile when 07/05/22 is used as estimated date of delivery. Note that the ultr asound from 12/06/2021 suggested an estimated date of delivery of 07/09/2022. 3. Normal anatomic survey.
== END 2022-02-04 09:18 | disposition home or self-care (01) ==
LOC: CHSIMG 09:19
PROVIDERS: PCP Nurse Practitioner Family; Visit Provider Nurse Practitioner Family
DX: Z34.91 Encounter for supervision of normal pregnancy, unspecified, first trimester (principal)
CPT/HCPCS: 76805

== ENCOUNTER 2022-04-29 09:30 | Emergency (ER) | payer OTHER, SELFPAY ==
[2022-04-29 09:44] VITALS: BP 114/62; PULSE 79; RESP 20; TEMP 36.4; O2SAT 100
--- NOTE | 2022-04-29 09:55 | ED.URI ---
HPI - URI/Sore Throat General Chief Complaint: Upper Respiratory Infection Stated Complaint: Sore Throat/Cough Time Seen by Provider: 04/29/22 09:56 History of Present Illness HPI Narrative: 26-year-old female presented for complaint of sore throat since this morning. She endorses cough and sinus congestion since allergy season started. She is not taking anything. She is 30 weeks gestation, endorses baby is kicking often. Currently denies shortness of breath, nausea, vomiting, diarrhea, fevers or chills. Endorses her 3-year-old daughter is also sick. Related Data Home Medications Medication Instructions Recorded Confirmed sertraline 50 mg tablet 50 mg PO QHS 04/29/22 04/29/22 Allergies Allergy/AdvReac Type Severity Reaction Status Date / Time almond Allergy Severe Hives/RED Verified 04/29/22 09:57 FACE bee venom protein (honey bee) Allergy Severe Anaphylaxis Verified 04/29/22 09:57 [bees] amoxicillin Allergy Mild Hives / Verified 04/29/22 09:57 Red Face Penicillins Allergy Unknown Hives / Verified 04/29/22 09:57 [place] Review of Systems Review of Systems: CONSTITUTIONAL: Denies body aches, fever, chills, or sweats. EYES: Denies visual changes, redness, or discharge. ENT: Endorses rhinorrhea, congestion, sore throat CARDIOVASCULAR: Denies chest pain, palpitations, or edema. RESPIRATORY: Denies dyspnea. GASTROINTESTINAL: Denies abdominal pain, nausea, vomiting, or diarrhea. SKIN: Denies rash, itching, or wounds. MUSCULOSKELETAL: Denies back pain, joint pain, or myalgia. NEUROLOGIC: Denies headache PMFSH Past Medical History Medical History Anxiety state, unspecified Borderline personality disorder Depression History of drug overdose History of suicide attempt Personality disorder Social History Social History Smoking status: Never smoker Alcohol intake: never Substance use: never Gender identity (if verbalized by the patient): Female Exam Narrative: GENERAL: well-appearing EYES: conjunctivae clear ENT: Mucous membranes moist. TM pearly perez with normal light reflex bilaterally; no tragal tenderness. Oropharynx erythematous without lesions. No drooling, no hoarseness, no trismus, uvula midline. No tripod positioning, hot potato voice, or soft palate swelling. NECK: Supple. No lymphadenopathy CHEST: Clear to auscultation, breath sounds equal. HEART: Regular rate and rhythm. No murmur heard. SKIN: Warm, dry, no rash. NEURO: Alert and oriented x3. Course Course Emergency Course: Patient is aware of diagnosis, understands and agrees to treatment plan. Anticipatory guidance given. Patient agrees to follow-up as directed and is aware of reasons to seek care at the emergency department. Portions of this record may have been created with voice recognition software Level of Care: Express Care Visit Vital Signs Vital signs: Vital Signs Temperature 97.6 F 04/29/22 09:44 Pulse Rate 79 04/29/22 09:44 Respiratory Rate 20 04/29/22 09:44 Blood Pressure 114/62 04/29/22 09:44 Pulse Oximetry 100 04/29/22 09:44 Oxygen Delivery Room Air 04/29/22 09:44 Temperature 97.6 F 04/29/22 09:44 Pulse Rate 79 04/29/22 09:44 Respiratory Rate 20 04/29/22 09:44 Blood Pressure 114/62 04/29/22 09:44 Pulse Oximetry 100 04/29/22 09:44 Oxygen Delivery Room Air 04/29/22 09:44 MDM - URI/Sore Throat MDM Narrative Medical decision making narrative: strep result reviewed with pt. Advise supportive treatments. Patient is appropriate for outpatient treatment and follow-up. Differential Diagnosis Differential diagnosis: Likely upper respiratory infection, viral infection and pharyngitis Discharge Plan Discharge Clinical Impression: Pharyngitis Patient Disposition: Home, Self-Care Condition: Stable Instructions: An
== END 2022-04-29 10:05 | disposition home or self-care (01) ==
PROVIDERS: Emergency Provider Nurse Practitioner Family
DX: J02.9 Acute pharyngitis, unspecified (principal); F41.9 Anxiety disorder, unspecified; F32.A Depression, unspecified
CPT/HCPCS: 87081; 87880; 99213; G0463

== ENCOUNTER 2022-10-15 17:30 | Outpatient (CLI) | payer OTHER, SELFPAY ==
--- NOTE | ~2022-10-15 | XR_ITS ---
Cervical Spine: AP, lateral, oblique, open-mouth views Clinical History: Pain Findings: There is minimal reversal normal cervical lordosis. The vertebral bodies and posterior ramón ments otherwise appear intact. The intervertebral disc spaces are well maintained. Pre-vertebral sof t tissues are unremarkable. Impression: Minimal reversal of the normal cervical lordosis, otherwise unremarkable exam. Reviewed, dictated and finalized at [facility]. Impression: Minimal reversal of the normal cervical lordosis, otherwise unremarkable exam.
== END 2022-10-15 17:31 | disposition home or self-care (01) ==
LOC: CHSIMG 17:33
PROVIDERS: PCP Nurse Practitioner Family; Visit Provider Nurse Practitioner Family
DX: M54.2 Cervicalgia (principal)
CPT/HCPCS: 72050

== ENCOUNTER 2022-10-18 12:08 | Outpatient (CLI) | payer OTHER, SELFPAY ==
--- NOTE | ~2022-10-18 | XR_ITS ---
EXAMINATION: XR thoracic spine 3V DATE: 10/18/2022 12:37 INDICATION: Lower thoracic spine pain TECHNIQUE: AP, lateral and lateral swimmer's views of the thoracic spine were obtained. COMPARISON: 03/07/2021 FINDINGS: No fracture, dislocation, or subluxation. The vertebral body heights, alignment, and interv ertebral disc spaces are normal. The paravertebral soft tissues are unremarkable. IMPRESSION: 1. No acute osseous abnormality. Reviewed, dictated and finalized at location B.
--- NOTE | ~2022-10-18 | XR_ITS ---
EXAMINATION: XR lumbar spine 2-3V DATE: 10/18/2022 12:38 INDICATION: Low back pain TECHNIQUE: Anteroposterior and lateral views of the lumbar spine, and cone-down lateral view of the l umbosacral junction were obtained. COMPARISON: None. FINDINGS: There are 8 degrees of lumbar levocurvature. Bone alignment is normal. There is no fracture . The vertebral body heights and intervertebral disc spaces are maintained. IMPRESSION: 1. No acute osseous abnormality. Reviewed, dictated and finalized at location B.
== END 2022-10-18 12:09 | disposition home or self-care (01) ==
LOC: CHSIMG 12:10
PROVIDERS: PCP Nurse Practitioner Family; Visit Provider Nurse Practitioner Family
DX: M43.9 Deforming dorsopathy, unspecified (principal); M54.50 Low back pain, unspecified
CPT/HCPCS: 72072; 72100

== ENCOUNTER 2022-10-24 07:36 | Outpatient (RCR) | payer OTHER, SELFPAY ==
--- NOTE | 2022-10-24 08:21 | PTOPEVAL1 ---
Assessment and note entered by [employer]T [employer], PT Evaluation Information Assessment Status Evaluation Diagnosis cervicalgia, migraines, dorsalgia Onset 10/16/22 Subjective Information patient reports for the past 1-2 months she has been having neck pain that has been causing bad migraines. she reports she also has back pain, but reports she has had this for more than a year. she reports she did have a baby 4 months ago. she reports she does alternate both sides for nursing and alternates holding the baby on both side. she reports during deliverys he did have an epidural and and associated spinal headache. she reports she has increased pain/symptoms in the lower back with laying flat on her back/sitting upright. she reports increased pain/symptoms in the neck randomly. she reports she does have symptoms sometimes with turning her head/neck. she reports migraines usually stem from a pain in the top of her neck. she reports no LE radicular symptoms, but does report at at night she has tingling in the bilateral arms. Reported Pain Level Pain Score 0,2: Self Report Assessment PT Clinical Summary mrs. saenz is a 27 yo woman who presents to skilled PT services for evaluaiton and treatment of neck and lower back pain. she presents this date with signs and symptoms consistent with cervical and lumbar core instability. she presents with decreased core strength, neck core strength, decreased lumbar rom, and migraines/cervical symptoms. she would benefit from skilled PT services to address her above deficits and to return to her prior level functional activity performance/quality of life. Plan of Care PT Services Indicated Yes Treatment Frequency and 2x weekly for 10 visits. Duration These treatments will address the objective and functional deficits as defined above. The patient will be advanced safely and appropriately in order for the patient to progress towards his/her prior level of function. Additional exercises will be introduced and as well as a comprehensive home exercise program upon discharge, if needed, ?to ensure carryover of functional gains achieved in the clinic. This treatment plan has been reviewed and agreement upon by the patient.
--- NOTE | 2022-11-26 08:52 | PTOPREEVAL ---
Assessment and note entered by Kelsey Jones DPT Evaluation Information Assessment Status Re-evaluation Diagnosis cervicalgia, migraines, dorsalgia Onset 10/16/22 Subjective Information Lizabeth reports neck pain is almost completely resolved at this time. She reports that she has only had 2-3 migraines in the last month. She reports back pain continues to come and go but does notice improved activity tolerance. She reports independence with HEP. Reported Pain Level Pain Score 5,2: Self Report Assessment PT Clinical Summary Patient has been seen for 10 visits from 10/24/22-. Patient has made good improvements at this time and has partially met objective goals and is progressing towards all others. She has improved strength, ROM and decrease in pain. She continues to have diffiuclty with prolonged positioning and would benefit from continued skilled PT to address remaining impairments and return to PLOF. Plan of Care Interventions Electrical Stimulation,Gait Training,Hot Pack/Cold Pack,Manual Therapy,Neuro Re-education,Patient/ Caregiver Educati,Therapeutic Activities, Therapeutic Exercise PT Services Indicated Yes Treatment Frequency and continue 2x weekly for 8 visits Duration These treatments will address the objective and functional deficits as defined above. The patient will be advanced safely and appropriately in order for the patient to progress towards his/her prior level of function. Additional exercises will be introduced and as well as a comprehensive home exercise program upon discharge, if needed, ?to ensure carryover of functional gains achieved in the clinic. This treatment plan has been reviewed and agreement upon by the patient.
--- NOTE | 2022-12-31 07:53 | PTOPDC ---
Assessment and note entered by Blanka Cowan, PT Evaluation Information Assessment Status Discharge Diagnosis Cervicalgia, migraines, dorsalgia Onset 10/16/22 Subjective Information Lizaebth Blanco reports that she is not having neck or back pain this am. She is reporting minimal pain overall and when she does have pain she can have her massage her neck and make it better. She notes the highest pain she has had is a 4/10 and that is when she tries to throw something too heavy at work and she gets tight. She also has minimal headaches now. Her lower back pain has completely resolved as well. Reported Pain Level Pain Score 0: Self Report Assessment PT Clinical Summary Lizabeth Blanco has completed 18 skilled PT visits for cervicalgia, headaches, and low back pain. She is reporting little to no pain in the neck and back and she rarely has headaches now. When she does have a headache, she can get it to go away with a massage. She is able to perform all ADLs and work activities without difficulty. She objectively demonstrates full cervical and lumbar AROM; good core, hip, and cervical strength; and independence with a home exercise program. She has met most of her goals at this time and she will be discharged to an independent home program. Plan of Care PT Services Indicated Yes
== END 2022-12-31 17:04 | disposition home or self-care (01) ==
LOC: CHSPT 07:36
PROVIDERS: PCP Nurse Practitioner Family; Visit Provider Nurse Practitioner Family
DX: M54.2 Cervicalgia (principal); M43.9 Deforming dorsopathy, unspecified
CPT/HCPCS: 97014; 97110; 97140; 97161; 97530; 97750; G0283

== ENCOUNTER 2023-01-17 09:27 | Outpatient (CLI) | payer OTHER, SELFPAY ==
[2023-01-17 09:55] LABS: Basophils Absolute Auto 0.04 K/mm3 (0.00-0.10); Basophils Percent Auto 0.8 % (0.0-1.0); Eosinophils Absolute Auto 0.26 K/mm3 (0.02-0.50); Eosinophils Percent Auto 5.2 % (1.0-6.0); Hematocrit 43.9 % (35.0-49.0); Hemoglobin 14.7 g/dL (12.0-15.0); Immature Granulocyte Absolute 0.01 K/mm3 (0.00-0.00); Immature Granulocyte Percent A 0.2 % (0.0-0.0); Lymphocytes Absolute Auto 1.83 K/mm3 (1.10-4.50); Lymphocytes Percent Auto 36.9 % (18.0-42.0); Mean Corpuscular HGB Conc 33.5 g/dL (32.0-36.0); Mean Corpuscular Hemoglobin 28.6 pg (27.0-31.0); Mean Corpuscular Volume 85.4 fL (78.0-102.0); Mean Platelet Volume 10.9 fl (9.2-11.8); Monocytes Absolute Auto 0.34 K/mm3 (0.10-0.90); Monocytes Percent Auto 6.9 % (2.0-11.0); Neutrophils Absolute Auto 2.5 K/mm3 (1.7-7.2); Platelet Count Result 152 K/mm3 (150-420); Red Blood Count 5.14 M/mm3 (4.20-5.40); Red Cell Distribution Width 12.8 % (11.6-14.4)
[2023-01-17 10:38] LABS: Alanine Aminotransferase 29 U/L (14-59); Albumin Level 3.8 g/dL (3.4-5.0); Alkaline Phosphatase 76 U/L (46-116); Anion Gap 7 mmol/L (8-16); Aspartate Amino Transferase 17 U/L (15-37); Bilirubin,Total 0.4 mg/dL (0.00-1.00); Blood Urea Nitrogen 18 mg/dL (7-18); Calcium 8.5 mg/dL (8.5-10.1); Carbon Dioxide 27 mmol/L (21-32); Chloride 105 mmol/L (98-108); Estimated Glomerular Filt Rate > 60; Glucose 92 mg/dL (70-99); Osmolality Calculated 289 mOsm/kg (285-295); Potassium 4.1 mmol/L (3.5-5.1); Sodium 139 mmol/L (136-145); Thyroid Stimulating Hormone 0.66 uIU/mL (0.36-3.74); Total Protein 7.1 g/dL (6.4-8.2)
== END 2023-01-17 09:28 | disposition home or self-care (01) ==
LOC: CHSLAB 09:29
PROVIDERS: PCP Nurse Practitioner Family; Visit Provider Nurse Practitioner Family
DX: F41.9 Anxiety disorder, unspecified (principal); F53.0 Postpartum depression
CPT/HCPCS: 36415; 80053; 84443; 85025

== ENCOUNTER 2023-10-16 12:11 | Outpatient (CLI) | payer OTHER, SELFPAY ==
--- NOTE | ~2023-10-16 | XR_ITS ---
XR chest 2V DATE: 10/16/2023 12:31 INDICATION: Pleurodynia TECHNIQUE: PA and lateral chest COMPARISON: None FINDINGS: Normal heart size. No hilar or mediastinal enlargement. Minimal infiltrate or atelectasis m ay be present in the left lower lung; otherwise no pulmonary infiltrate or consolidation, vascular co ngestion or pleural effusion or pneumothorax. IMPRESSION: Minimal infiltrate or atelectasis may be present in the left lower lung; otherwise no act prateek cardiopulmonary disease Reviewed, dictated and finalized at location L. IMPRESSION: Minimal infiltrate or atelectasis may be present in the left lower lung; otherwise no active cardiopulmonary disease
[2023-10-18 13:43] LABS: Lead, Blood 2.2 mcg/dL (<3.5)
[2023-10-20 17:28] LABS: Collection Sample VENOUS
== END 2023-10-16 12:12 | disposition home or self-care (01) ==
LOC: CHSLAB 12:12
PROVIDERS: PCP Nurse Practitioner Family; Visit Provider Nurse Practitioner Family
DX: R07.81 Pleurodynia (principal); Z77.011 Contact with and (suspected) exposure to lead; R91.8 Other nonspecific abnormal finding of lung field
CPT/HCPCS: 36415; 71046; 83655

== ENCOUNTER 2023-10-19 07:10 | Emergency (ER) | payer OTHER, SELFPAY ==
--- NOTE | ~2023-10-19 | XR_ITS ---
EXAMINATION: XR chest 2V 10/19/2023 07:35 INDICATION: Shortness of breath. Right-sided chest pain. PROCEDURE: 2 view chest COMPARISON: 10/16/2023 FINDINGS: The lungs are clear. The cardiomediastinal silhouette is within normal limits. There are no pleural effusions. There is no pneumothorax suspected. IMPRESSION: 1: NO ACUTE CARDIOPULMONARY DISEASE. Reviewed, dictated and finalized at location A.
[2023-10-19 07:10] VITALS: BP 122/90; PULSE 92; RESP 18; TEMP 36.4; O2SAT 100
--- NOTE | 2023-10-19 07:22 | ED.URI ---
HPI - URI/Sore Throat General Chief Complaint: Upper Respiratory Infection Stated Complaint: throat swelling and rib pain Time Seen by Provider: 10/19/23 07:20 Source: patient Mode of arrival: ambulatory Limitations: no limitations History of Present Illness HPI Narrative: patient is a 28-year-old female with difficulty swallowing due to some pain in her throat as well as a sore throat for the past 2 and half weeks. She is on doxycycline at this time. She was given a round of steroids and felt better. She is . MD elicited complaint: sore throat Onset (ago): week(s) (2.5) Consistency: constant Severity: moderate Pain scale (0-10): 5 Description of mucous: clear Able to tolerate fluids by mouth: Yes Exacerbating factors: nothing Relieving factors: nothing Associated symptoms: sore throat and shortness of breath Treatments prior to arrival: antibiotics Related Data Allergies Allergy/AdvReac Type Severity Reaction Status Date / Time almond Allergy Severe Hives/RED Verified 10/17/23 08:32 FACE bee venom protein (honey bee) Allergy Severe Anaphylaxis Verified 10/17/23 08:32 [bees] amoxicillin Allergy Mild Hives / Verified 10/17/23 08:32 Red Face Penicillins Allergy Unknown Hives / Verified 10/17/23 08:32 Red Face Review of Systems Review of Systems: All systems reviewed & are unremarkable except as noted in HPI and below Constitutional: Constitutional: Reports no additional constitutional complaints Eyes: Eyes: Reports no additional eye complaints ENT: Reports system reviewed and no additional complaints, except as documented Cardiovascular: Cardiovascular: Reports no additional cardiovascular complaints Respiratory: Respiratory: Reports no additional respiratory complaints Gastrointestinal: Gastrointestinal: Reports no additional gastrointestinal complaints Genitourinary: Genitourinary: Reports no additional female genitourinary complaints Musculoskeletal: Musculoskeletal: Reports no additional musculoskeletal complaints Integumentary/Breasts: Skin/Breast: Reports system reviewed and no additional complaints, except as docu Neurologic: Reports system reviewed and no additional complaints, except as documented Psychiatric: Psychiatric: Reports no additional psychiatric complaints Endocrine: Endocrine: Reports no additional endocrine complaints Hematologic/Lymphatic: Hematologic/Lymphatic: Reports no additional hematologic/lymphatic complaints Allergic/Immunologic: Allergic/Immunologic: Reports no additional allergic/immunologic complaints PMFSH Past Medical History Medical History Anxiety state, unspecified Borderline personality disorder Depression History of drug overdose History of suicide attempt Personality disorder Social History Social History Smoking status: Never smoker Alcohol intake: never Substance use: never Living arrangements: with family Gender identity (if verbalized by the patient): Female Exam Const: General: healthy appearing Nutritional Appearance: well nourished Orientation/consciousness: patient oriented x3 HENMT: Head: normal to inspection Ears: external ears normal Face/Nose/Sinus: Normal external nose present Other: Red oropharynx without tonsillar hypertrophy or pus; no peritonsillar abscess appearance Eyes: Conjunctivae: conjunctivae normal Pupils: Equal, round and reactive pupils present EOM: EOMs intact bilaterally Neck: Neck: normal visual inspection Chest: Chest palpation & inspection: normal inspection of the chest Resp: Effort & Inspection: normal respiratory effort and not labored Auscultation: clear to auscultation bilaterally Cardio: Rate: regular rate Rhythm: regular rhythm Heart sounds: no murmurs GI: Inspection: non-distended GI Palp: Yes Soft to palpation and No Tenderness to palpat
[2023-10-19] MEDS: methylPREDNISolone SOD SUCC 125 MG VIAL IV PUSH (08:00)
[2023-10-19 08:08] LABS: Basophils Absolute Auto 0.03 K/mm3 (0.00-0.10); Basophils Percent Auto 0.3 % (0.0-1.0); Eosinophils Absolute Auto 0.19 K/mm3 (0.02-0.50); Eosinophils Percent Auto 1.9 % (1.0-6.0); Hematocrit 43.1 % (35.0-49.0); Hemoglobin 14.6 g/dL (12.0-15.0); Immature Granulocyte Absolute 0.04 K/mm3 (0.00-0.00); Immature Granulocyte Percent A 0.4 % (0.0-0.0); Lymphocytes Absolute Auto 1.75 K/mm3 (1.10-4.50); Lymphocytes Percent Auto 17.2 % (18.0-42.0); Mean Corpuscular HGB Conc 33.9 g/dL (32-36); Mean Corpuscular Hemoglobin 28.8 pg (27.0-31.0); Mean Platelet Volume 9.9 fl (9.2-11.8); Monocytes Absolute Auto 0.72 K/mm3 (0.10-0.90); Monocytes Percent Auto 7.1 % (2.0-11.0); Neutrophils Absolute Auto 7.43 K/mm3 (1.70-7.20); Neutrophils Percent Auto 73.1 % (50.0-70.0); Platelet Count Result 234 K/mm3 (150-420); Red Blood Count 5.07 M/mm3 (4.20-5.40); Red Cell Distribution Width 11.9 % (11.6-14.4); White Blood Count 10.2 K/mm3 (4.8-10.8)
[2023-10-19 08:25] LABS: Alanine Aminotransferase 16 U/L (14-59); Albumin Level 3.6 g/dL (3.4-5.0); Alkaline Phosphatase 82 U/L (46-116); Anion Gap 12 mmol/L (8-16); Aspartate Amino Transferase 11 U/L (15-37); Bilirubin,Total 0.5 mg/dL (0.00-1.00); Blood Urea Nitrogen 13 mg/dL (7-18); Calcium 9.3 mg/dL (8.5-10.1); Carbon Dioxide 26 mmol/L (21-32); Chloride 102 mmol/L (98-108); Estimated CRCL calculation 101 ml/min; Estimated Glomerular Filt Rate > 60; Glucose 95 mg/dL (70-99); Osmolality Calculated 290 mOsm/kg (285-295); Potassium 3.9 mmol/L (3.5-5.1); Sodium 140 mmol/L (136-145); Total Protein 7.1 g/dL (6.4-8.2)
== END 2023-10-19 08:41 | disposition home or self-care (01) ==
PROVIDERS: Emergency Provider Emergency Medicine; PCP Nurse Practitioner Family
DX: J02.9 Acute pharyngitis, unspecified (principal); F60.3 Borderline personality disorder
CPT/HCPCS: 36415; 71046; 80053; 85025; 96374; 99284; J2930

== ENCOUNTER 2024-01-24 12:37 | Emergency (ER) | payer OTHER, SELFPAY ==
[2024-01-24 12:37] VITALS: BP 117/71; PULSE 84; RESP 18; TEMP 36.4; O2SAT 98
--- NOTE | 2024-01-24 13:08 | ED.UPPEXIN ---
HPI - Extremity Injury (Upper) General Chief Complaint: Extremity Injury, Upper Stated Complaint: left hand injury History of Present Illness HPI narrative: 27-year-old female patient is here with complaints of a puncture wound to the left hand at the base of the thumb with a sharp ice pick that she had been using to clean another tool. The injury took place yesterday. The patient states that there was bleeding at the time. She did clean the area and put a Band-Aid dressing on it but today she noticed that there was some swelling and drainage and also pain in the thumb area. She has no numbness or tingling. She does not have pain on moving her fingers and approximating her some to opposing fingers. She reports no fever or chills. She is unsure about her tetanus status. Related Data Allergies Allergy/AdvReac Type Severity Reaction Status Date / Time almond Allergy Severe Hives/RED Verified 01/24/24 12:44 FACE bee venom protein (honey bee) Allergy Severe Anaphylaxis Verified 01/24/24 12:44 [bees] amoxicillin Allergy Mild Hives / Verified 01/24/24 12:44 Red Face Penicillins Allergy Unknown Hives / Verified 01/24/24 12:44 Red Face Review of Systems Review of Systems: All systems reviewed & are unremarkable except as noted in HPI and below PMFSH Past Medical History Medical History Anxiety state, unspecified Borderline personality disorder Depression History of drug overdose History of suicide attempt Personality disorder Social History Social History Smoking status: Never smoker Alcohol intake: never Substance use: never Living arrangements: with family Gender identity (if verbalized by the patient): Female Exam Narrative: Alert female patient in no acute distress. Stable vital signs. Afebrile. Normal HEENT. No respiratory distress. Left hand is examined patient has a small puncture wound at the base of left thumb into the thenar eminence. There is tenderness across the thenar eminence as well as in the 1st interdigital space. There is no erythema. There is minimal swelling in the area. The movement of the thumb is intact in all directions. The function of the interaction and lumbrical muscles intact. Neurovascular supply to the tip of the thumb is intact. Rest of the left upper extremity is normal. Rest of the physical examination is normal. Course Vital Signs Vital signs: Vital Signs Temperature 36.4 C 01/24/24 12:37 Pulse Rate 84 01/24/24 12:37 Respiratory Rate 18 01/24/24 12:37 Blood Pressure 117/71 01/24/24 12:37 Pulse Oximetry 98 01/24/24 12:37 Oxygen Delivery Room Air 01/24/24 12:37 Temperature 36.4 C 01/24/24 12:37 Pulse Rate 84 01/24/24 12:37 Respiratory Rate 18 01/24/24 12:37 Blood Pressure 117/71 01/24/24 12:37 Pulse Oximetry 98 01/24/24 12:37 Oxygen Delivery Room Air 01/24/24 12:37 MDM - Extremity Injury (Upper) MDM Narrative Medical decision making narrative: Puncture wound with an ice pack to the left in the thenar area with pain but no evidence of palmar space infection on examination will update the tetanus for the patient and also start the patient on antibiotics. She has been advised to keep the hand clean and use Betadine solution soaks. Discharge Plan Discharge Clinical Impression: Puncture wound of hand, left Patient Disposition: Home, Self-Care Condition: Stable Instructions: Antibiotic Form, Puncture Wound (ED) Additional Instructions: Keep the puncture wound area dry and clean. Antibiotics as prescribed. Soak the hand in Betadine solution for 10-20 minutes every day follow-up with your primary care provider if you notice any redness swelling or worsening pain in the hand. Take Tylenol 650 mg and ibuprofen 600 mg every 6-8 hours for pain and swelling reli
[2024-01-24] MEDS: TETANUS,DIPHTHERIA,AC PERTUSSIS ADULT 0.5 ML (ADACEL) IM (13:25)
[2024-01-24 13:35] VITALS: BP 103/59; PULSE 78; RESP 16; TEMP 36.2; O2SAT 100
== END 2024-01-24 13:37 | disposition home or self-care (01) ==
PROVIDERS: Emergency Provider Emergency Medicine; PCP Family Medicine
DX: S61.432A Puncture wound without foreign body of left hand, initial encounter (principal); Z23 Encounter for immunization; W27.4XXA Contact with kitchen utensil, initial encounter
CPT/HCPCS: 90471; 90715; 99283

== ENCOUNTER 2024-05-19 18:23 | Emergency (ER) | payer OTHER, SELFPAY ==
[2024-05-19] VITALS (15 sets, daily range): BP systolic 103–128; BP diastolic 64–74; PULSE 73–94; RESP 13–25; TEMP 36.6–36.7; O2SAT 98–100
--- NOTE | ~2024-05-19 | XR_ITS ---
CHEST RADIOGRAPH CLINICAL HISTORY: cough . COMPARISON: 10/19/2023 TECHNIQUE: Single portable view of the chest. FINDINGS The cardiomediastinal silhouette is unremarkable. The lungs are clear. Visualized osseous structures and soft tissues are unremarkable. IMPRESSION: No focal infiltrate or effusion. Reviewed, dictated and finalized at location A.
--- NOTE | 2024-05-19 18:43 | ED.URI ---
HPI - URI/Sore Throat General Chief Complaint: Upper Respiratory Infection Stated Complaint: COUGH Time Seen by Provider: 05/19/24 18:41 Source: patient Mode of arrival: ambulatory Limitations: no limitations History of Present Illness HPI Narrative: 28-year-old female with a history of anxiety, borderline personality disorder, suicidal ideation and drug overdose, asthma in the past presents to the ED with a 3 day history of -- nasal congestion -- sore throat -- nonproductive cough no fever or chills no chest pain MD elicited complaint: cough, sore throat and nasal congestion Pertinent past history: asthma Onset (ago): day(s) ( 3 days) Consistency: constant Severity: moderate Able to tolerate fluids by mouth: Yes Exacerbating factors: nothing Relieving factors: nothing Associated symptoms: nasal congestion, sore throat and cough Related Data Allergies Allergy/AdvReac Type Severity Reaction Status Date / Time almond Allergy Severe Hives/RED Verified 05/19/24 18:34 FACE bee venom protein (honey bee) Allergy Severe Anaphylaxis Verified 05/19/24 18:34 [bees] amoxicillin Allergy Mild Hives / Verified 05/19/24 18:34 Red Face Penicillins Allergy Unknown Hives / Verified 05/19/24 18:34 Red Face Review of Systems Review of Systems: All systems reviewed & are unremarkable except as noted in HPI and below Constitutional: Constitutional: Reports as per HPI and Reports no additional constitutional complaints Eyes: Eyes: Reports as per HPI and Reports no additional eye complaints ENT: Reports system reviewed and no additional complaints, except as documented, Reports nasal congestion and Reports sore throat Cardiovascular: Cardiovascular: Reports as per HPI and Reports no additional cardiovascular complaints Respiratory: Respiratory: Reports as per HPI, Reports no additional respiratory complaints and Reports cough Gastrointestinal: Gastrointestinal: Reports as per HPI and Reports no additional gastrointestinal complaints Genitourinary: Genitourinary: Reports no additional female genitourinary complaints and Reports as per HPI Musculoskeletal: Musculoskeletal: Reports no additional musculoskeletal complaints and Reports as per HPI Integumentary/Breasts: Skin/Breast: Reports system reviewed and no additional complaints, except as docu and Reports as per HPI Neurologic: Reports system reviewed and no additional complaints, except as documented and Reports as per HPI Psychiatric: Psychiatric: Reports no additional psychiatric complaints and Reports as per HPI Endocrine: Endocrine: Reports no additional endocrine complaints and Reports as per HPI Hematologic/Lymphatic: Hematologic/Lymphatic: Reports no additional hematologic/lymphatic complaints and Reports as per HPI Allergic/Immunologic: Allergic/Immunologic: Reports no additional allergic/immunologic complaints and Reports as per HPI [facility] Past Medical History Medical History Anxiety state, unspecified Borderline personality disorder Depression History of drug overdose History of suicide attempt Personality disorder Social History Social History Smoking status: Never smoker Alcohol intake: never Substance use: never Living arrangements: with family Gender identity (if verbalized by the patient): Female Exam Narrative: vitals are stable. Oxygen saturation of 99% on room air with a respiratory rate of 20. Afebrile Const: General: no acute distress Orientation/consciousness: patient oriented x3 Limitations: no limitations HENMT: Head: normal to inspection Ears: external ears normal Face/Nose/Sinus: Normal external nose present Face and sinus: normal facial exam Mouth: Yes Normal oral and palatal mucosa present Throat: posterior oropharynx normal Eyes: Conjunctivae: conjunctivae normal Pupils: Equal, round and
--- NOTE | 2024-05-19 19:05 | PC.NURSE ---
patient report received from LUIS Vang for continuation of care into evening shift.
[2024-05-19 19:14] LABS: Basophils Absolute Auto 0.02 K/mm3 (0.00-0.10); Basophils Percent Auto 0.2 % (0.0-1.0); Eosinophils Absolute Auto 0.33 K/mm3 (0.02-0.50); Eosinophils Percent Auto 3.4 % (1.0-6.0); Hematocrit 39.1 % (35.0-49.0); Hemoglobin 13.7 g/dL (12.0-15.0); Immature Granulocyte Absolute 0.03 K/mm3 (0.00-0.00); Immature Granulocyte Percent A 0.3 % (0.0-0.0); Lymphocytes Percent Auto 22.8 % (18.0-42.0); Mean Corpuscular Hemoglobin 29.9 pg (27.0-31.0); Mean Corpuscular Volume 85.4 fL (78.0-102.0); Mean Platelet Volume 10.7 fl (9.2-11.8); Monocytes Absolute Auto 0.64 K/mm3 (0.10-0.90); Monocytes Percent Auto 6.6 % (2.0-11.0); Neutrophils Absolute Auto 6.45 K/mm3 (1.70-7.20); Neutrophils Percent Auto 66.7 % (50.0-70.0); Platelet Count Result 169 K/mm3 (150-420); Red Blood Count 4.58 M/mm3 (4.20-5.40); Red Cell Distribution Width 11.7 % (11.6-14.4); White Blood Count 9.7 K/mm3 (4.8-10.8)
[2024-05-19 19:31] LABS: Add Urine Microscopic? NO; Appearance Urine Clear (Clear); Bilirubin Urine Negative (Negative); Blood Urine Negative (Negative); Color Urine Light Yellow (Yellow); Glucose Urine UA Negative (Negative); Ketones Urine Negative (Negative); Leukocyte Esterase Ur Negative LEU/UL (Negative); Nitrate Urine Negative (Negative); Protein Urine Negative (Negative); Specific Grav Ur <= 1.005 (1.010-1.020); Urobilinogen Urine 0.2 mg/dL (0.2-1.0)
[2024-05-19 19:31] LABS: Lactic Acid Reflex 0.8 mmol/L (0.4-2.0)
--- NOTE | 2024-05-19 19:31 | PC.NURSE ---
patient awake and alert resting on stretcher at this time. denies current needs, update provided. patient awaiting results. call light within reach, RN monitoring. dry cough noted.
[2024-05-19 19:42] LABS: Alanine Aminotransferase 19 U/L (14-59); Albumin Level 3.9 g/dL (3.4-5.0); Alkaline Phosphatase 68 U/L (46-116); Anion Gap 10 mmol/L (4-12); Aspartate Amino Transferase 15 U/L (15-37); Blood Urea Nitrogen 7 mg/dL (7-18); Carbon Dioxide 28 mmol/L (21-32); Chloride 103 mmol/L (98-108); Estimated CRCL calculation 98 ml/min; Estimated Glomerular Filt Rate > 60; Glucose 83 mg/dL (70-99); Osmolality Calculated 289 mOsm/kg (285-295); Potassium 3.6 mmol/L (3.5-5.1); Sodium 141 mmol/L (136-145)
[2024-05-19 19:56] LABS: SARS-CoV-2 RNA PCR Negative (Negative)
[2024-05-19 19:57] LABS: Influenza A QL RT-PCR Negative (Negative); Influenza B QL RT-PCR Negative (Negative); RSV RNA, RT-PCR Negative (Negative)
[2024-05-19] MEDS: AZITHROMYCIN 250 MG TABLET 500 MG PO (20:18)
[2024-05-19] MEDS: methylPREDNISolone SOD SUCC 125 MG VIAL 40 MG IM (20:20)
--- NOTE | 2024-05-19 20:25 | PC.NURSE ---
patient medicated per order, see SEP. RN monitoring, pt awaiting discharge papers.
== END 2024-05-19 20:39 | disposition home or self-care (01) ==
PROVIDERS: Emergency Provider Internal Medicine Critical Care Medicine; PCP Nurse Practitioner Family
DX: J45.909 Unspecified asthma, uncomplicated (principal); J06.9 Acute upper respiratory infection, unspecified; Z20.822 Contact with and (suspected) exposure to COVID-19
CPT/HCPCS: 36415; 71045; 80053; 81003; 83605; 85025; 87637; 96372; 99283; A9270; J2919

== ENCOUNTER 2024-06-29 13:50 | Emergency (ER) | payer OTHER, SELFPAY ==
[2024-06-29 13:50] VITALS: BP 119/71; PULSE 80; RESP 16; TEMP 36.7; O2SAT 99
--- NOTE | 2024-06-29 14:04 | ED_ITS ---
HPI - Wound/Laceration General Chief Complaint: Wound/Laceration Stated Complaint: laceration Time Seen by Provider: 06/29/24 14:04 Source: patient Mode of arrival: ambulatory Limitations: no limitations History of Present Illness HPI narrative: patient is a 28-year-old female with a left middle finger laceration on the palmar surface mid finger. She was using a sharp instrument /blade and it poked into the finger. Still some continued bleeding mildly. Onset (ago): minute(s) (30) Location: other ( Left middle finger palmar surface mid finger) Place: home Patient tetanus UTD: Yes Context: accidental Associated symptoms: none Treatments prior to arrival: bandage Related Data Allergies Allergy/AdvReac Type Severity Reaction Status Date / Time almond Allergy Severe Hives/RED Verified 06/29/24 13:57 FACE bee venom protein (honey bee) Allergy Severe Anaphylaxis Verified 06/29/24 13:57 [bees] amoxicillin Allergy Mild Hives / Verified 06/29/24 13:57 Red Face Penicillins Allergy Unknown Hives / Verified 06/29/24 13:57 Red Face Review of Systems Review of Systems: All systems reviewed & are unremarkable except as noted in HPI and below Constitutional: Constitutional: Reports no additional constitutional complain ts Eyes: Eyes: Reports no additional eye complaints ENT: Reports system reviewed and no additional complaints, except as documented Cardiovascular: Cardiovascular: Reports no additional cardiovascular complaints Respiratory: Respiratory: Reports no additional respiratory complaints Gastrointestinal: Gastrointestinal: Reports no additional gastrointestinal complaints Genitourinary: Genitourinary: Reports no additional female genitourinary complaints Musculoskeletal: Musculoskeletal: Reports no additional musculoskeletal complaints Integumentary/Breasts: Skin/Breast: Reports system reviewed and no additional complaints, except as docu Neurologic: Reports system reviewed and no additional complaints, except as documented Psychiatric: Psychiatric: Reports no additional psychiatric complaints Endocrine: Endocrine: Reports no additional endocrine complaints Hematologic/Lymphatic: Hematologic/Lymphatic: Reports no additional hematologic/lymphatic complaints Allergic/Immunologic: Allergic/Immunologic: Reports no additional allergic/immunologic complaints [facility] [place] Past Medical History Medical History Anxiety state, unspecified Borderline personality disorder Depression History of drug overdose History of suicide attempt Personality disorder Social History Social History Smoking status: Never smoker Alcohol intake: never Substance use: never Living arrangements: with family Gender identity (if verbalized by the patient): Female Exam Const: General: healthy appearing Nutritional Appearance: well nourished Orientation/consciousness: patient oriented x3 HENMT: Head: normal to inspection Ears: external ears normal Face/Nose/Sinus: Normal external nose present Eyes: Conjunctivae: conjunctivae normal Pupils: Equal, round and reactive pupils present EOM: EOMs intact bilaterally Neck: Neck: normal visual inspection Chest: Chest palpation & inspection: normal inspection of the chest Resp: Effort & Inspection: normal respiratory effort and not labored A uscultation: clear to auscultation bilaterally Cardio: Rate: regular rate Rhythm: regular rhythm Heart sounds: no murmurs GI: Inspection: non-distended GI Palp: Yes Soft to palpation and No Tenderness to palpation present (GI) Auscultation: normal bowel sounds Skin: General skin exam: normal color Rashes: no rashes Wounds: wound noted Other: left middle finger palmar surface middle finger mid finger has a 0.3 cm lacera tion with significant depth causing continued bleeding from the sharp knife Neuro: General: patient oriented x3 Cranial nerves: Yes Nystagmus not present Speech: normal speech Extrem: General: normal to inspection Psych: Mental Status: mental status grossly normal Affect: normal affect Attitude: cooperative Course Vital Signs Vital signs: Vital Signs Temperature 36.7 C 06/29/24 13:50 Pulse Rate 80 06/29/24 13:50 Respiratory Rate 16 06/29/24 13:50 Blood Pressure 119/71 06/29/24 13:50 Pulse Oximetry 99 06/29/24 13:50 Oxygen Delivery Room Air 06/29/24 13:50 Temperature 36.7 C 06/29/24 13:50 Pulse Rate 80 06/29/24 13:50 Respiratory Rate 16 06/29/24 13:50 Blood Pressure 119/71 06/29/24 13:50 Pulse Oximetry 99 06/29/24 13:50 Oxygen Delivery Room Air 06/29/24 13:50 Procedures Other Procedure Procedure 1: Other Procedure: Left middle finger laceration: Area cleaned with chlorhexidine/ iodine, anesthesia with 1% lidocaine, 4-0 nylon used for closure, 4 simple sutures for closure done, antibiotic ointment placed, bandage placed, patient tolerated procedure well, no complications MDM - Wound/Laceration MDM Narrative Medical decision making narrative: patient is a 28-year-old female with a left hand laceration. We will suture this closed. Tetanus up-to-date. Discharge Plan Discharge Clinical Impression: Finger laceration Qualifiers: Encounter type: initial encounter Finger: middle finger Damage to nail status: without damage Foreign body presence: without foreign body Laterality: left Qualified Code(s): S61.213A - Laceration without foreign body of left middle finger without damage to nail, initial encounter Patient Disposition: Home, Self-Care Condition: Stable Instructions: Laceration (ED) Additional Instructions: please follow-up with the primary doctor in the next week. Please have sutures removed in 7-10 days. Prescriptions: No Action azithromycin [Zithromax] 250 mg tablet 250 mg PO DAILY 4 Days Qty: 4 0RF Rx Instructions: start on day 2 of therapy prednisone 20 mg tablet 20 mg PO BID Qty: 7 0RF albuterol sulfate 90 mcg/actuation HFA aerosol inhaler 1 inh inhalation Q4H PRN (Reason: shortness of breath or wheezing) Qty: 8.5 3RF epinephrine [EpiPen 2-Cheko] 0.3 mg/0.3 mL auto-injector 0.3 mg IM ONCE Qty: 2 1RF Rx Instructions: as a single dose 1 box - 2 syringes per box escitalopram oxalate 10 mg tablet See Rx Instructions .ROUTE .COMPLEX Qty: 7 1RF Dose Instruction: TAKE 1 TABLET BY MOUTH DAILY FOR 6 WEEKS Rx Instructions: TAKE 1 TABLET BY MOUTH DAILY lithium carbonate 300 mg tablet 300 mg PO QHS Qty: 10 0RF lamotrigine 100 mg tablet 100 mg PO DAILY Qty: 10 0RF buspirone 15 mg tablet See Rx Instructions .ROUTE .COMPLEX Qty: 60 1RF Dose Instruction: TAKE 1 TABLET BY MOUTH TWICE DAILY. IF TOLERATING WELL AFTER 2-3 DAYS, CONTACT CLINIC FOR INCREASE. Rx Instructions: TAKE 1 TABLET BY MOUTH TWICE DAILY. IF TOLERATING WELL AFTER 2-3 DAYS, CONTACT CLINIC FOR INCREASE. Follow-up/Referrals: Mor Barber APRN [Primary Care Provider] -
[2024-06-29] MEDS: LIDOCAINE HCL 1% LOCAL INJ 10 ML VIAL INFILTRATE (14:33)
--- NOTE | 2024-06-29 14:59 | PC.NURSE ---
ERP AT BEDSIDE REPAIRING WOUND AT THIS TIME.
[2024-06-29] MEDS: NEOMYCIN/POLYMYXIN/BACITRACIN OINTMENT PACKET 1 PACKET TOPICAL (15:29)
[2024-06-29 15:30] VITALS: PULSE 80; RESP 18; O2SAT 99
== END 2024-06-29 15:30 | disposition home or self-care (01) ==
LOC: CHSED 14:51
PROVIDERS: Emergency Provider Emergency Medicine; PCP Nurse Practitioner Family
DX: S61.213A Laceration without foreign body of left middle finger without damage to nail, initial encounter (principal); W26.8XXA Contact with other sharp object(s), not elsewhere classified, initial encounter
CPT/HCPCS: 12001; 99282; J2003

== ENCOUNTER 2024-07-23 15:01 | Emergency (ER) | payer OTHER, SELFPAY ==
[2024-07-23 15:22] VITALS: BP 131/75; PULSE 86; RESP 16; TEMP 37.3; O2SAT 100
--- NOTE | 2024-07-23 15:24 | ED_ITS ---
HPI - Female Genitourinary General Chief complaint: Urogenital-Female Stated complaint: Vaginal Issue Time Seen by Provider: 07/23/24 15:24 Source: patient and RN notes reviewed Mode of arrival: ambulatory Limitations: no limitations History of Present Illness HPI Narrative: 28-year-old female presented for complaint of vaginal itching and burning at the end of urination. Onset 3 days. Started using Vagisil soap which has helped temporarily. Also applies A&D ointment. Pt denies vaginal discharge, hematuria, nausea, vomiting, abdominal pain, flank pain, constipation, diarrhea, fevers or chills. Denies concern for STD. Related Data Allergies Allergy/AdvReac Type Severity Reaction Status Date / Time almond Allergy Severe Hives/RED Verified 06/29/24 13:57 FACE bee venom protein (honey Allergy Severe Anaphylaxis Verified 06/29/24 13:57 bee) (bees) amoxicillin Allergy Mild Hives / Verified 06/29/24 13:57 Red Face Penicillins Allergy Unknown Hives / Verified 06/29/24 13:57 Red Face Review of Systems Review of Systems: CONSTITUTIONAL: Denies body aches, fever, chills, or sweats. CARDIOVASCULAR: Denies chest pain, palpitations, or edema. RESPIRATORY: Denies cough or dyspnea. GASTROINTESTINAL: Denies abdominal pain, nausea, vomiting, or diarrhea. GENITOURINARY: Reports dysuria, itching denies frequency, urgency, hematuria, flank pain SKIN: Denies rash MUSCULOSKELETAL: Denies back pain or myalgia. [facility] Past Medical History Medical History History of drug overdose History of suicide attempt Borderline personality disorder Personality disorder Anxiety state, unspecified Depression Social History Social History Smoking status: Never smoker Alcohol intake: never Substance use: never Living arrangements: with family Gender identity (if verbalized by the patient): Female Comments At time of signature, I have reviewed and agree with nursing past medical, surgical, social and family history unless otherwise noted. Please see nursing chart for further information. There is no relevant family history pertinent to the presenting complaint Exam Narrative: GENERAL: Well-appearing ENT: Mucous membranes pink and moist. NECK: Normal AROM. Supple. CHEST: No respiratory distress. Clear to auscultation. HEART: Regular rate and rhythm. ABDOMEN: Soft, nontender, nondistended, normal active bowel sounds. No CVA tenderness SKIN: Warm, dry, no rash. NEURO: No focal deficits. Alert and oriented x3. Gait steady. PSYCH: Normal affect. Course Course Emergency Course: Patient is aware of diagnosis, understands and agrees to treatment plan. Anticipatory guidance given. Patient agrees to follow-up as directed and is aware of reasons to seek care at the emergency department. Portions of this record may have been created with voice recognition software Level of Care: Express Care Visit Vital Signs Vital signs: Vital Signs Temperature 99.2 F 07/23/24 15:22 Pulse Rate 86 07/23/24 15:22 Respiratory Rate 16 07/23/24 15:22 Blood Pressure 131/75 07/23/24 15:22 Pulse Oximetry 100 07/23/24 15:22 Oxygen Delivery Room Air 07/23/24 15:22 Temperature 99.2 F 07/23/24 15:22 Pulse Rate 86 07/23/24 15:22 Respiratory Rate 16 07/23/24 15:22 Blood Pressure 131/75 07/23/24 15:22 Pulse Oximetry 100 07/23/24 15:22 Oxygen Delivery Room Air 07/23/24 15:22 Reviewed MDM - Female Genitourinary MDM Narrative Medical decision making narrative: Discussed physical exam findings and urine dip. Will send rx fluconazole. Pt declined pelvic exam, denied concern for std. Advised supportive measures and signs/symptoms to go to the ER. Pt is appropriate for outpt treatment and f/u. Differential Diagnosis Differential diagnosis: Likely urinary tract infection, bacterial vaginosis, trichomoniasis, cervicitis, vaginitis and cystitis Lab Data Labs: Lab Results 07/23/24 Range/Units 15:31 POC Urine Color Yellow POC Urine Clarity Cloudy POC Urine pH 7.0 POC Ur Specif [place] 1.025 POC Urine Protein Negative (Negative) POC Ur Glucose (UA) Negative (Negative) POC Urine Ketones Negative (Negative) POC Urine Blood Negative (Negative) POC Urine Nitrite Negative (Negative) POC Urine Bilirubin Negative (Negative) POC Urine Urobilinogen 0.2 POC U Leukocyte Esteras Negative (Negative) Discharge Plan Discharge Clinical Impression: Vaginitis Patient Disposition: Home, Self-Care Condition: Stable Instructions: Antibiotic Form, Yeast Infection (ED) Additional Instructions: Your urine will be sent of for a culture to determine if bacteria is causing your symptoms. If the culture shows a UTI, you will be notified and an antibiotic will be called in for you. Keep skin clean, dry and well aerated Wear cotton underpants. Double rinse underpants after washing. Avoid fabric softeners for underpants and swimsuits. Avoid tights, leotards, leggings. Wearing loose fitting pants/skirts allow air to circulate. Avoid wearing wet swimsuits for long periods of time. Avoid bubble baths or perfumed soap Rinse genital area well and pat dry gently Cool compresses may help relieve the redness/irritation. Aquaphor, vaseline or A&D ointment may help protect the skin. May take the fluconazole while - it may cause GI upset and diarrhea for . Follow up with your primary care provider/Obgyn as needed in 1 week Go to the ER for worsening symptoms or concerns Patient Language: French Prescriptions: New fluconazole 150 mg tablet 150 mg PO DAILY Qty: 2 0RF No Action azithromycin [Zithromax] 250 mg tablet 250 mg PO DAILY 4 Days Qty: 4 0RF Rx Instructions: start on day 2 of therapy prednisone 20 mg tablet 20 mg PO BID Qty: 7 0RF albuterol sulfate 90 mcg/actuation HFA aerosol inhaler 1 inh inhalation Q4H PRN (Reason: shortness of breath or wheezing) Qty: 8.5 3RF epinephrine [EpiPen 2-Cheko] 0.3 mg/0.3 mL auto-injector 0.3 mg IM ONCE Qty: 2 1RF Rx Instructions: as a single dose 1 box - 2 syringes per box escitalopram oxalate 10 mg tablet See Rx Instructions .ROUTE .COMPLEX Qty: 7 1RF Dose Instruction: TAKE 1 TABLET BY MOUTH DAILY FOR 6 WEEKS Rx Instructions: TAKE 1 TABLET BY MOUTH DAILY lithium carbonate 300 mg tablet 300 mg PO QHS Qty: 10 0RF lamotrigine 100 mg tablet 100 mg PO DAILY Qty: 10 0RF buspirone 15 mg tablet See Rx Instructions .ROUTE .COMPLEX Qty: 60 1RF Dose Instruction: TAKE 1 TABLET BY MOUTH TWICE DAILY. IF TOLERATING WELL AFTER 2-3 DAYS, CONTACT CLINIC FOR INCREASE. Rx Instructions: TAKE 1 TABLET BY MOUTH TWICE DAILY. IF TOLERATING WELL AFTER 2-3 DAYS, CONTACT CLINIC FOR INCREASE. Follow-up/Referrals: UNKNOWN,DOCTOR [Primary Care Provider] - Time of Disposition: 16:12
[2024-07-23 15:34] LABS: EDUAAPPEAR Cloudy; EDUABILI Negative (Negative); EDUABLOOD Negative (Negative); EDUACOLOR1 Yellow; EDUAGLUCOSE Negative (Negative); EDUAKETONE Negative (Negative); EDUALEUKO Negative (Negative); EDUANITRATE Negative (Negative); EDUAPROTEIN Negative (Negative); EDUASPGRAVITY 1.025; EDUAUROBILI 0.2
== END 2024-07-23 16:16 | disposition home or self-care (01) ==
PROVIDERS: Emergency Provider Nurse Practitioner Family
DX: N76.0 Acute vaginitis (principal)
CPT/HCPCS: 81003; 87086; 99213; G0463

== ENCOUNTER 2024-09-13 17:26 | Emergency (ER) | payer OTHER, SELFPAY ==
[2024-09-13 17:31] VITALS: BP 111/79; PULSE 88; RESP 16; TEMP 36.8; O2SAT 100
--- NOTE | 2024-09-13 17:40 | ED_ITS ---
HPI - URI/Sore Throat General Chief Complaint: Upper Respiratory Infection Stated Complaint: Chest Tightness/Sore Throat/Cough Time Seen by Provider: 09/13/24 17:40 Source: patient, RN notes reviewed and old records reviewed Mode of arrival: ambulatory Limitations: no limitations History of Present Illness HPI Narrative: 29 year old female presents to [facility] care with complaints of having influenza A about 10 days ago and today she started with a sore throat, chest hurting from all the coughing.Patient reports that her nasal drainage is better but cough is lingering. She states that she has taken some cough drops today that helps the throat. MD elicited complaint: cough, sore throat and other (chest hurts from coughing) Pertinent past history: other (Influenza 10 days ago continued cough and sore throat) Onset (ago): day(s) (10 days ago had influenza cough has lingered sore throat started today) Consistency: constant Pain scale (0-10): 2 Able to tolerate fluids by mouth: Yes Treatments prior to arrival: other (cough drops throat lozenges) Related Data Allergies Allergy/AdvReac Type Severity Reaction Status Date / Time almond Allergy Severe Hives/RED Verified 09/13/24 17:38 FACE bee venom protein (honey Allergy Severe Anaphylaxis Verified 09/13/24 17:38 bee) (bees) amoxicillin Allergy Mild Hives / Verified 09/13/24 17:38 Red Face Penicillins Allergy Unknown Hives / Verified 09/13/24 17:38 Red Face Review of Systems Review of Systems: CONSTITUTIONAL: Denies malaise, no chills, sweats, or fever. EYES: Denies visual changes, redness, or discharge. ENT: Reports rhinorrhea, congestion, sinus pain,no otalgia and positive for sore throat. CARDIOVASCULAR: Denies chest pain, palpitations, or edema. RESPIRATORY: Reports cough.? Denies dyspnea. states some chest soreness with cough GASTROINTESTINAL: Denies abdominal pain, nausea, vomiting, diarrhea SKIN: Denies rash or itching. MUSCULOSKELETAL: Denies myalgia. NEUROLOGIC: Denies headache. All systems reviewed & are unremarkable except as noted in HPI and below PMFSH Past Medical History Medical History (Updated 09/15/24 @ 20:34 by Josie Ratliff NP) History of drug overdose History of suicide attempt Borderline personality disorder Personality disorder Anxiety state, unspecified Depression Surgical History Surgical History (Updated 09/15/24 @ 20:33 by Josie Ratliff NP) History of mandibular surgery History of nasal surgery Social History Social History Smoking status: Never smoker Alcohol intake: never Substance use: never Living arrangements: with family Gender identity (if verbalized by the patient): Female Comments At time of signature, agree with nursing past medical, surgical, social and family history. There is no relevant family history pertinent to the presenting complaint Exam Narrative: GENERAL: Well-appearing, well-nourished, and in no acute distress. HEAD: Normocephalic EYES: PERRLA, conjunctivae clear ENT: Nares clear, turbinates edematous and erythematous, clear discharge. Mucous membranes moist. TM pearly perez with dull light reflex bilaterally; no tragal tenderness. Oropharynx erythematous without lesions. Tonsils not enlarged and without exudate, no drooling, no hoarseness, no trismus, uvula midline.post nasal drainage. NECK: Supple. No lymphadenopathy CHEST: Clear to auscultation, breath sounds equal. No wheezing, rhonchi, rales, or stridor. No respiratory distress, speaks in full sentences.cough continues, SAO2 100% on room air HEART: Regular rate and rhythm. No murmur heard. SKIN: Warm, dry, no rash. NEURO: Alert and oriented x3. ugh noted SAO2 PSYCH: Normal mood and affect Course Course Emergency Course: Patient is aware of diagnosis, understands and agrees to treatment plan.? Anticipatory guidance given.? Patient agrees to follow-up as directed and is aware of reasons to seek care at the emergency department. Portions of this record may have been created with voice recognition software Level of Care: Express Care Visit Vital Signs Vital signs: Vital Signs Temperature 36.8 C 09/13/24 17:31 Pulse Rate 88 09/13/24 17:31 Respiratory Rate 16 09/13/24 17:31 Blood Pressure 111/79 09/13/24 17:31 Pulse Oximetry 100 09/13/24 17:31 Oxygen Delivery Room Air 09/13/24 17:31 Temperature 36.8 C 09/13/24 17:31 Pulse Rate 88 09/13/24 17:31 Respiratory Rate 16 09/13/24 17:31 Blood Pressure 111/79 09/13/24 17:31 Pulse Oximetry 100 09/13/24 17:31 Oxygen Delivery Room Air 09/13/24 17:31 Reviewed MDM - URI/Sore Throat MDM Narrative Medical decision making narrative: Differential diagnosis considered: Hawk virus, strep pharyngitis, allergic rhinitis, upper respiratory tract infection, sinusitis, rhinosinusitis, nasopharyngitis. viral pharyngitis, otitis media, otitis externa, pneumonia, bronchitis, viral cough syndrome, viral syndrome, and influenza.? Exam findings show no acute concerns or changes; patient is non-toxic appearing and is in no distress.? Patient is appropriate for outpatient treatment and follow-up. Differential Diagnosis Differential diagnosis: Likely upper respiratory infection, pharyngitis and other (strep pharyngitis, acute cough) Lab Data Attestation: I reviewed the patient's lab results. Lab results narrative: strep screen negative, culture sent Labs: Lab Results 09/13/24 Range/Units 17:38 POC Grp A Strep Screen Negative (Negative) Critical Care Time Critical Care Time Critical Care Time: No Discharge Plan Discharge Clinical Impression: URI, acute Pharyngitis Qualifiers: Pharyngitis/tonsillitis etiology: unspecified etiology Qualified Code(s): J02.9 - Acute pharyngitis, unspecified Patient Disposition: Home, Self-Care Condition: Stable Instructions: Pharyngitis (ED), Upper Respiratory Infection (ED) Additional Instructions: Increase fluids especially juices and water [id number] cough and cold medicine of your choice for your symptoms Tylenol or Ibuprofen for any fever or pain Continue your inhaler/nebulizer as directed Steroids as directed--take with food heat to the face 20-30 minutes 4-6 times a day for pain Salt water gargles, throat lozenges or throat sprays as desired If your symptoms persist, change or worsen significantly before you can contact your personal physician then please, without delay, go to the emergency department for further evaluation. Follow-up with PCP in 7-10 days or sooner if needed Mucinex daily for congestion drink plenty of fluids while taking this medication Your strep test today was negative. A throat culture will be sent to the laboratory for further testing. IF the test is positive, you will receive a phone call within 48 hours and an appropriate antibiotic will be initiated at that time. Patient Language: Yi Prescriptions: New prednisone 20 mg tablet 20 mg PO BID Qty: 10 0RF No Action epinephrine [EpiPen 2-Cheko] 0.3 mg/0.3 mL auto-injector 0.3 mg IM ONCE Qty: 2 1RF Rx Instructions: as a single dose 1 box - 2 syringes per box escitalopram oxalate 10 mg tablet See Rx Instructions .ROUTE .COMPLEX Qty: 7 1RF Dose Instruction: TAKE 1 TABLET BY MOUTH DAILY FOR 6 WEEKS Rx Instructions: TAKE 1 TABLET BY MOUTH DAILY lithium carbonate 300 mg tablet 300 mg PO QHS Qty: 10 0RF lamotrigine 100 mg tablet 100 mg PO DAILY Qty: 10 0RF buspirone 15 mg tablet See Rx Instructions .ROUTE .COMPLEX Qty: 60 1RF Dose Instruction: TAKE 1 TABLET BY MOUTH TWICE DAILY. IF TOLERATING WELL AFTER 2-3 DAYS, CONTACT CLINIC FOR INCREASE. Rx Instructions: TAKE 1 TABLET BY MOUTH TWICE DAILY. IF TOLERATING WELL AFTER 2-3 DAYS, CONTACT CLINIC FOR INCREASE. albuterol sulfate 90 mcg/actuation HFA aerosol inhaler See Rx Instructions .ROUTE .COMPLEX Qty: 8.5 3RF Dose Instruction: INHALE 1 PUFF BY MOUTH EVERY 4 HOURS NEEDED FOR SHORTNESS OF BREATH OR WHEEZING Rx Instructions: INHALE 1 PUFF BY MOUTH EVERY 4 HOURS NEEDED FOR SHORTNESS OF BREATH OR WHEEZING Follow-up/Referrals: UNKNOWN,DOCTOR [Primary Care Provider] - Time of Disposition: 17:57 Quality [place] Coma Scale Eyes: Open Verbal: Oriented and Alert Motor: Follows Commands Holly Coma Total Score: 15
[2024-09-13 17:53] LABS: EDSTREPNEGPOS1 Negative (Negative)
--- OUTSIDE RECORDS SUMMARY | 2024-09-13 18:46 | XMS_ITS | Referral Summary ---
Author Organization [facility] Address [address] [place] [address] Care Team Providers Care Dining Room Host Name Role Phone No, Physician Primary Care Provider [phone] Allergies Active Allergy Reactions Criticality Noted Date Comments [place] Rash Medium Amoxicillin Hives Medium Penicillins Hives Medium 01/15/2018 Medications HYDROcodone-aceta minophen (NORCO) 5-325 mg per tabletIndications :Pain Take 1 tablet by mouth every 4 (four) hours as needed for pain 12 tablet 06/19/20 22 Active Additional Information Patient not taking.Reported on 05/19/2024 EPINEPHrine 0.3 mg/0.3 mL auto-injection syringe INJECT 0.3 MG (0.3 ML) INTRAMUSCULARLY ONCE A SINGLE DOSE 1 BOX - 2 SYRINGES PER BOX 07/02/20 22 Active fluticasone propion-salmetero L (ADVAIR DISKUS) 100-50 mcg/dose diskus inhaler Inhale 1 puff A ctive meloxicam (MOBIC) 7.5 mg tablet Take by mouth Ac tive ondansetron ODT (ZOFRAN-ODT) 4 mg disintegrating tablet 06/28/20 22 Active sertraline (ZOLOFT) 50 mg tablet 50 MG ORALLY DAILY 07/22/20 22 Active busPIRone (BUSPAR) 15 mg tablet Take 1 tablet (15 mg total) by mouth 2 (two) times a day 09/29/19 24 Active escitalopram (LEXAPRO) 10 mg tablet Take 1 tablet (10 mg total) by mouth daily 09/21/19 Active lamoTRIgine (LaMICtal) 100 mg tablet Take 1.5 tablets (150 mg total) by mouth daily 09/21/19 Active lithium 300 mg tablet Take 1 tablet/capsule (300 mg total) by mouth daily 09/14/19 Active benzonatate (TESSALON) 200 mg capsuleIndication s:Acute cough Take 1 capsule (200 mg total) by mouth 3 (three) times a day as needed for cough keep tessalon out of reach of children, especially children under the age of 10, due to possible serious risk such as if ingested by children under the age of 10. 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 Irregular menstrual cycle 02/02/2014 Urticaria, unspecified 10/16/2013 Menorrhagia 03/24/2013 Sprain of medial collateral ligament of knee 09/2012 Patellofemoral pain syndrome 05/13/2012 Raised antibody titer 05/13/2012 Benign neoplasm of skin of lower extremity 03/13 Hay fever 02/12/2012 Chronic infection of sinus 02/12/2012 Strain of shoulder 08/23/2011 Acquired kyphosis 05/17/2011 Fatigue 04/18/2011 Bronchial asthma 06/10/2008 Social History Tobacco Use Types Packs/Day Years Used Date Smoking Tobacco: Never Smokeless Tobacco: Never Alcohol Use Standard Drinks/Week Comments No 0 (1 standard drink = 0.6 oz pur e alcohol) Comments Unknown Sex and Gender Information Value Date Recorded Sex Assigned at Not on file 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 Gender Identity Not on file Sexual Orientation Not on file Last Filed Vital Signs Vital Sign Reading Time Taken Comments Blood Pressure 104/68 05/19/2024 5:03 PM CDT Pulse 91 05/19/2024 5:03 PM CDT Temperature 36.8 C (98.2 F) 05/19/2024 5:03 PM CDT Respiratory Rate 16 05/19/2024 5:03 PM CDT Oxygen Saturation 99% 05/19/2024 5:03 PM CDT Inhaled Oxygen Concentration - - Weight 70.3 kg (155 lb) 05/19/2024 5:03 PM CDT Height 167.6 cm (5' 6 ) 05/19/2024 5:03 PM CDT Body Mass Index 25.02 05/19/2024 5:03 PM CDT Plan of Treatment Not on file Insurance [facility] [address] [place] [address] [facility] Advance Directives For more information, please contact: [phone] * Full Code (Latest Code Status on File) Date Activated Date Inactivated Comments 06/17/2022 1:04 PM 06/19/2022 7:45 PM * Full Code Date Activated Date Inactivated Comments 06/16/2022 10:24 PM 06/17/2022 1:04 PM Full CPR in case of cardiopulmonary arrest * Full Code Date Activated Date Inactivated Comments 08/07/2018 5:18 PM 08/09/2018 6:37 PM * Full Code Date Activated Date Inactivated Comments 08/07/2018 10:25 AM 08/07/2018 5:18 PM Full CPR in case of cardiopulmonary arrest Care Teams Dining Room Host Relationship Specialty Start Date End Date No, Physician PCP - General 05/03/22
--- OUTSIDE RECORDS SUMMARY | 2024-09-13 18:46 | XMS_ITS | Clinical Summary ---
Author Organization [facility] Address [address] [place] [address] Care Team Providers Care Fisher Trot Line Name Role Phone No, Physician Primary Care Provider [phone] Allergies Active Allergy Reactions Criticality Noted Date Comments Brookne[place] Rash Medium Amoxicillin Hives Medium Penicillins Hives [...] (10 mg total) by mouth daily 09/21/19 24 Active lamoTRIgine (LaMICtal) 100 mg tablet Take 1.5 tablets (150 mg total) by mouth daily 09/21/19 24 Active lithium 300 mg tablet Take 1 tablet/capsule (300 mg total) by mouth daily 09/14/19 24 Active benzonatate (TESSALON) 200 mg capsuleIndication s:Acute [...] kyphosis 05/17/2011 Fatigue 04/18/2011 Bronchial asthma 06/10/2008 Medical History Medical History Date Comments Closed displaced fracture of neck of right radius Closed fracture of neck of r ight radius - (Added by TW Conv) Pain of foot Foot pain - (Add ed by TW Conv) Infective otitis externa Acute O titis Externa Of The Left Ear - (Added by TW Conv) Personal history of other sp ecified conditions History of connective tissue disease - (Added by TW Conv) Asthma Suicidal thoughts Family History Medical History Relation Name Comments Asthma Other 1 Asthma - (Added by TW Conv) Hypertension Other 2 Hypertension - (Added by TW Conv) Heart disease Other 3 Heart Disease - (Added by TW Conv) Cancer Other 4 Cancer - (Added by TW Conv) Diabetes Other 5 Diabetes Mellit us - (Added by TW Conv) Relation Name Status Comments Other 1 Other 2 Other 3 Other 4 Other 5 Social History Tobacco Use Types Packs/Day Years Used Date Smoking Tobacco: Never Smokeless Tobacco: Never Alcohol Use Standard Drinks/Week Comments No 0 (1 standard drink = 0.6 oz pur e alcohol) Comments Unknown Sex and Gender Information Value Date Recorded Sex Assigned at Not on file 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 Gender Identity Not on file Sexual Orientation Not on file Obstetrics History Para Term AB IAB SAB Ectopic Multiple Livin g Live Births 2 2 2 0 2 2 Date Outcome GA Total Labor Labor/2nd/3rd Weight Sex Type Anes PTL Melida A1 A5 Name Clin 2018 Term 39w 4d 3h 04m 2h 28m/0h 30m/0h 06m 3.286 kg (7 lb 3.9 oz) F Vag-S pont None N Livin g 9 9 SUNIL REINA,CROW zavaleta, Reece baker MD Complications:Precipitous La bor (<3 hours) Delivery Location:[facility]) 2021 Term 37w 3d 1h 54m 1h 15m/0h 34m/0h 05m 3.024 kg (6 lb 10.7 oz) M Vag-S pont Epidur al N Livin g 6 8 KLAME RT,ANJUM ORLY Zaragoza , Raghu Warren MD Complications:None Delivery Location[facility]) Last Filed Vital Signs Vital Sign Reading [...] 05/19/2024 5:03 PM CDT Plan of Treatment Health Maintenance Due Date Last Done Comments Cervical Cancer Screening 1997 Depression Screening 1997 Hepatitis C Screening 1997 Varicella Vaccines (1 of 2 - 13+ 2-dose series) 2010 Hepatitis B Screening 2015 Regular Well Visit/Exam 18-64 2015 Pneumococcal vaccine <65 (1 of 2 - PCV) 2016 Influenza Vaccine (#1) 2024 05/15/2018 DTaP/Tdap/Td Vaccine (2 - Td or Tdap) 05/15/2028 05/15/2018 HPV Vaccines Aged Out No longer eligi ble based on patient's age to complete this topic Insurance [facility] Advance Directives For more information, please contact: [phone] * Full Code (Latest Code Status on [...] in case of cardiopulmonary arrest Care Teams Fisher Trot Line Relationship Specialty Start Date End Date No, Physician PCP - General 05/03/22
== END 2024-09-13 18:05 | disposition home or self-care (01) ==
PROVIDERS: Emergency Provider Registered Nurse
DX: J06.9 Acute upper respiratory infection, unspecified (principal); J02.9 Acute pharyngitis, unspecified; F41.9 Anxiety disorder, unspecified; F32.A Depression, unspecified
CPT/HCPCS: 87081; 87880; 99213; G0463

== ENCOUNTER 2024-11-11 21:03 | Emergency (ER) | payer OTHER, SELFPAY ==
[2024-11-11 21:08] VITALS: BP 117/85; PULSE 62; RESP 18; TEMP 36.4; O2SAT 100
--- OUTSIDE RECORDS SUMMARY | 2024-11-11 21:10 | XMS_ITS | Clinical Summary ---
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
--- OUTSIDE RECORDS SUMMARY | 2024-11-11 21:10 | XMS_ITS | Referral Summary ---
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 Advance Directives For more information, please contact: [phone] * Full Code (Latest Code Status on [...] in case of cardiopulmonary arrest Care Teams Customer Sales Service Manager Relationship Specialty Start Date End Date No, Physician PCP - General 05/03/22
[2024-11-11] MEDS: LIDOCAINE 1% LOCAL INJ 10 ML VIAL INFILTRATE (21:34)
--- NOTE | 2024-11-11 22:02 | ED.WOUNDLAC ---
HPI - Wound/Laceration General Chief Complaint: Wound/Laceration Stated Complaint: laceration Time Seen by Provider: 11/11/24 21:19 Source: patient and family Mode of arrival: ambulatory Limitations: no limitations History of Present Illness HPI narrative: this is a 29-year-old female that has a laceration to her left forearm approximately 8cm in length that occurred earlier this evening when she was walking and bumped her arm against a piece of metal. No other injury. Onset (ago): hour(s) Location: other Extremity Location: Left: forearm ( laceration gaping left forearm) Place: home Patient tetanus UTD: Yes Context: accidental Related Data Allergies Allergy/AdvReac Type Severity Reaction Status Date / Time almond Allergy Severe Hives/RED Verified 11/11/24 21:21 FACE bee venom protein (honey Allergy Severe Anaphylaxis Verified 11/11/24 21:21 bee) (bees) amoxicillin Allergy Mild Hives / Verified 11/11/24 21:21 Red Face Penicillins Allergy Unknown Hives / Verified 11/11/24 21:21 Red Face Review of Systems Review of Systems: All systems reviewed & are unremarkable except as noted in HPI and below PMFSH Past Medical History Medical History History of drug overdose History of suicide attempt Borderline personality disorder Personality disorder Anxiety state, unspecified Depression Surgical History Surgical History History of mandibular surgery History of nasal surgery Social History Social History Smoking status: Never smoker Alcohol intake: never Substance use: never Living arrangements: with family Gender identity (if verbalized by the patient): Female Exam Const: General: healthy appearing and no acute distress Nutritional Appearance: well nourished Orientation/consciousness: patient oriented x3 Limitations: no limitations Resp: Effort & Inspection: normal respiratory effort Auscultation: clear to auscultation bilaterally Cardio: Rate: regular rate Rhythm: regular rhythm GI: GI Palp: Yes Soft to palpation Auscultation: normal bowel sounds Skin: Wounds: wounds noted Neuro: General: moves all extremities and no meningeal signs Extrem: General: normal to inspection and no clubbing, cyanosis or edema Course Course Emergency Course: Patient with laceration and had suture repair patient tolerated procedure well. Vital Signs Vital signs: Vital Signs Temperature 36.4 C 11/11/24 21:08 Pulse Rate 62 11/11/24 21:08 Respiratory Rate 18 11/11/24 21:08 Blood Pressure 117/85 11/11/24 21:08 Pulse Oximetry 100 11/11/24 21:08 Oxygen Delivery Room Air 11/11/24 21:08 Temperature 36.4 C 11/11/24 21:08 Pulse Rate 62 11/11/24 21:08 Respiratory Rate 18 11/11/24 21:08 Blood Pressure 117/85 11/11/24 21:08 Pulse Oximetry 100 11/11/24 21:08 Oxygen Delivery Room Air 11/11/24 21:08 Procedures Laceration Laceration 1: Date: 11/11/24 Time: 22:04 Site: upper extremity Side (If applicable): left Size (cm): 8 Description: linear Depth: simple, single layer Local Anesthetic: lidocaine 1% Amount of anesthesia used (mL): 10 Pre-repair: wound explored, irrigated and irrigated extensively ====== Skin Level ====== Skin layer closed with: vicryl Size (cm): 4-0 Number of sutures: 18 Technique: simple, interrupted ====== Subcutaneous Layer ====== ====== Muscle Layer ====== ====== Tendon Layer ====== Critical Care Time Critical Care Time Critical Care Time: No Discharge Plan Discharge Clinical Impression: Laceration Patient Disposition: Home Condition: Stable Instructions: Antibiotic Form, Laceration (ED) Additional Instructions: advised patient to follow-up primary care physician in 8 days for suture removal. Patient Language: Japanese Prescriptions: No Action prednisone 20 mg tablet 20 mg PO BID Qty: 10 0RF epinephrine [EpiPen 2-Cheko] 0.3 mg/0.3 mL auto-injector 0.3 mg IM ONCE Qty: 2 1RF Rx Instructions: as a single dose 1 box - 2 syringes per box escitalopram oxalate 10 mg tablet See Rx Instructions .ROUTE .COMPLEX Qty: 7 1RF Dose Instruction: TAKE 1 TABLET BY MOUTH DAILY FOR 6 WEEKS Rx Instructions: TAKE 1 TABLET BY MOUTH DAILY lithium carbonate 300 mg tablet 300 mg PO QHS Qty: 10 0RF lamotrigine 100 mg tablet 100 mg PO DAILY Qty: 10 0RF buspirone 15 mg tablet See Rx Instructions .ROUTE .COMPLEX Qty: 60 1RF Dose Instruction: TAKE 1 TABLET BY MOUTH TWICE DAILY. IF TOLERATING WELL AFTER 2-3 DAYS, CONTACT CLINIC FOR INCREASE. Rx Instructions: TAKE 1 TABLET BY MOUTH TWICE DAILY. IF TOLERATING WELL AFTER 2-3 DAYS, CONTACT CLINIC FOR INCREASE. albuterol sulfate 90 mcg/actuation HFA aerosol inhaler See Rx Instructions .ROUTE .COMPLEX Qty: 8.5 3RF Dose Instruction: INHALE 1 PUFF BY MOUTH EVERY 4 HOURS NEEDED FOR SHORTNESS OF BREATH OR WHEEZING Rx Instructions: INHALE 1 PUFF BY MOUTH EVERY 4 HOURS NEEDED FOR SHORTNESS OF BREATH OR WHEEZING Follow-up/Referrals: Mor Barber APRN [Primary Care Provider] -
--- OUTSIDE RECORDS SUMMARY | 2024-11-11 22:02 | XMS_ITS | Clinical Summary ---
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 Advance Directives For more information, please contact: [phone] * Full Code (Latest Code Status on [...] in case of cardiopulmonary arrest Care Teams Gas Fitter Apprentice Relationship Specialty Start Date End Date No, Physician PCP - General 05/03/22
--- OUTSIDE RECORDS SUMMARY | 2024-11-11 22:02 | XMS_ITS | Referral Summary ---
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 Gender Identity Not on file Sexual Orientation [...] Plan of Treatment Not on file Insurance [facility] [address] [place] [address] [facility] Advance Directives For more information, please contact: [phone] * Full Code (Latest Code Status on [...] in case of cardiopulmonary arrest Care Teams Food And Beverage Intern Relationship Specialty Start Date End Date No, Physician PCP - General 05/03/22
[2024-11-11] MEDS: NEOMYCIN/POLYMYXIN/BACITRACIN OINTMENT PACKET 1 PACKET TOPICAL (22:11)
== END 2024-11-11 22:14 | disposition home or self-care (01) ==
PROVIDERS: Emergency Provider Emergency Medicine; PCP Nurse Practitioner Family
DX: S51.812A Laceration without foreign body of left forearm, initial encounter (principal); W45.8XXA Other foreign body or object entering through skin, initial encounter
CPT/HCPCS: 12004; 99282; J2003

== ENCOUNTER 2025-02-27 11:46 | Emergency (ER) | payer OTHER, SELFPAY ==
--- NOTE | ~2025-02-27 | XR_ITS ---
EXAMINATION: XR chest 2V DATE: 02/27/2025 12:28 INDICATION: Asthma presenting with cough TECHNIQUE: PA and lateral views of the chest were obtained. COMPARISON: Chest radiograph dated 05/19/2024 and 10/19/2023 FINDINGS: The lungs remain clear with no focal airspace opacities, pulmonary edema, pleural effusion or pneumot horax. The cardiomediastinal silhouette is normal. Chronic mild anterior wedging of a couple lower th oracic vertebral bodies. IMPRESSION: 1. No acute cardiopulmonary disease. Reviewed, dictated and finalized at location A.
--- OUTSIDE RECORDS SUMMARY | 2025-02-27 11:48 | XMS_ITS | Clinical Summary ---
Author Organization [facility] Address [address] [place] [address] Care Team Providers Care Front Office Supervisor Name Role Phone No, Physician Primary Care Provider [phone] Allergies Active Allergy Reactions Criticality Noted Date Comments [place] Rash Medium Amoxicillin Hives Medium Penicillins Hives [...] on file Legal Sex Female 3:[address] Gender Identity Not on file Sexual Orientation [...] 5:03 PM CDT Height 167.6 cm (5' 6) 05/19/2024 5:03 PM CDT Body Mass Index 25.02 05/19/2024 5:03 PM CDT Plan of Treatment Health Maintenance Due Date Last Done Comments Cervical Cancer Screening 1997 Depression Screening 1997 Hepatitis C Screening 1997 Varicella Vaccines (1 of 2 - 13+ 2-dose series) 2009 Hepatitis B Screening 2015 Regular Well Visit/Exam 18-64 2015 Pneumococcal vaccine <65 (1 of 2 - PCV) 2016 HPV Vaccines (1 - 3-dose SCDM series) 2024 Influenza Vaccine (#1) 2025 05/15/2018 DTaP/Tdap/Td Vaccine (2 - Td or Tdap) 05/15/2028 Insurance [facility] Advance Directives For more information, please contact: [phone] * Full Code (Latest Code Status on [...] in case of cardiopulmonary arrest Care Teams Front Office Supervisor Relationship Specialty Start Date End Date No, Physician PCP - General 05/03/22
--- OUTSIDE RECORDS SUMMARY | 2025-02-27 11:48 | XMS_ITS | Referral Summary ---
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 Gender Identity Not on file Sexual Orientation [...] Plan of Treatment Not on file Insurance [facility] [address] [place] [address] [facility] Advance Directives For more information, please contact: [phone] * Full Code (Latest Code Status on [...] in case of cardiopulmonary arrest Care Teams Forklift Truck Operator Relationship Specialty Start Date End Date No, Physician PCP - General 05/03/22
[2025-02-27 11:50] VITALS: BP 125/78; PULSE 87; RESP 16; TEMP 36.4; O2SAT 99
[2025-02-27 12:08] LABS: EDSTREPNEGPOS1 Negative (Negative)
[2025-02-27 12:13] LABS: EDCOVIDSCREEN Negative (Negative); EDINFLUASCREEN Negative (Negative); EDINFLUBSCREEN Negative (Negative)
--- NOTE | 2025-02-27 12:32 | ED.GENADULT ---
HPI - General Adult General Chief complaint: Upper Respiratory Infection Stated complaint: Cold Symptoms Source: patient Mode of arrival: ambulatory Limitations: no limitations History of Present Illness HPI narrative: Patient presents for evaluation of sick symptoms. She initially had right-sided ear pain 3 weeks ago. She was diagnosed with otitis externa. She was given ear drops. Symptoms improved but she later developed pain in the right ear. She then developed a sore throat, weakness, sinus congestion, thick yellow/green nasal drainage. productive cough of green sputum, shortness of breath or wheezing. She has an underlying history of asthma. She does not smoke. She has used nebulizer treatments. Related Data Allergies Allergy/AdvReac Type Severity Reaction Status Date / Time almond Allergy Severe Hives/RED Verified 02/27/25 12:00 FACE bee venom protein (honey Allergy Severe Anaphylaxis Verified 02/27/25 12:00 bee) (bees) amoxicillin Allergy Mild Hives / Verified 02/27/25 12:00 Red Face Penicillins Allergy Unknown Hives / Verified 02/27/25 12:00 Red Face Review of Systems Review of Systems: CONSTITUTIONAL: Denies fever, chills, or sweats. EYES: Denies visual changes, redness, or discharge. ENT: Reports sinus congestion, thick yellow/green drainage from the nares, right sided ear pain, and sore throat CARDIOVASCULAR: Denies chest pain, palpitations, or edema. RESPIRATORY: Reports productive cough of green sputum, SOB and wheezing GASTROINTESTINAL: Denies abdominal pain, nausea, vomiting, or diarrhea. GENITOURINARY: Denies dysuria or hematuria. SKIN: Denies rash or itching. MUSCULOSKELETAL: Denies back pain, joint pain, or myalgia. NEUROLOGIC:Reports weakness. Denies headache, numbness, dizziness. PSYCHIATRIC: Denies anxiety or depression. [facility] Past Medical History Medical History History of drug overdose History of suicide attempt Borderline personality disorder Personality disorder Anxiety state, unspecified Depression Surgical History Surgical History History of mandibular surgery History of nasal surgery Family History Family History Mother Family history non-contributory Social History Social History Smoking status: Never smoker Alcohol intake: never Substance use: never Living arrangements: with family Gender identity (if verbalized by the patient): Female Exam Narrative: GENERAL: Well-appearing, well-nourished, and in no acute distress. HEAD: Normocephalic, atraumatic. EYES: PERRLA and EOMI. ENT: Nares clear, no rhinorrhea or epistaxis. Mucous membranes moist. Oropharynx without tonsillar hypertrophy exudate or other lesions. Bilateral TMs pearly perez nonbulging NECK: Supple. No adenopathy or masses. No carotid bruits or JVD CHEST: Clear to auscultation. No respiratory distress. No wheezes rales or rhonchi HEART: Regular rate and rhythm. No murmur heard. Normal peripheral pulses. ABDOMEN: Soft, nontender, nondistended, normal active bowel sounds. EXTREMITIES: Normal range of motion. No edema. SKIN: Warm, dry, no rash. NEURO: No focal deficits. Alert and oriented x3. PSYCH: Normal mood and affect. Course Course Emergency Course: This is a 29-year-old female who presented for evaluation of sick symptoms. Strep, COVID, influenza were negative. Chest x-ray negative. Exam is consistent with bacterial sinusitis. Will dc with doxycycline and prednisone. Increase fluids. OTC agents for symptom management. Follow up with primary provider. Go to the ER for worsening symptoms. Pt in agreement with plan of care. Level of Care: Express Care Visit Vital Signs Vital signs: Vital Signs Temperature 36.4 C 02/27/25 11:50 Pulse Rate 87 02/27/25 11:50 Respiratory Rate 16 02/27/25 11:50 Blood Pressure 125/78 02/27/25 11:50 Pulse Oximetry 99 02/27/25 11:50 Oxygen Delivery Room Air 02/27/25 11:50 Temperature 36.4 C 02/27/25 11:50 Pulse Rate 87 02/27/25 11:50 Respiratory Rate 16 02/27/25 11:50 Blood Pressure 125/78 02/27/25 11:50 Pulse Oximetry 99 02/27/25 11:50 Oxygen Delivery Room Air 02/27/25 11:50 Medical Decision Making Vital Signs Vital Signs: Vital Signs Temperature 36.4 C 02/27/25 11:50 Pulse Rate 87 02/27/25 11:50 Respiratory Rate 16 02/27/25 11:50 Blood Pressure 125/78 02/27/25 11:50 Pulse Oximetry 99 02/27/25 11:50 Oxygen Delivery Room Air 02/27/25 11:50 Temperature 36.4 C 02/27/25 11:50 Pulse Rate 87 02/27/25 11:50 Respiratory Rate 16 02/27/25 11:50 Blood Pressure 125/78 02/27/25 11:50 Pulse Oximetry 99 02/27/25 11:50 Oxygen Delivery Room Air 02/27/25 11:50 Lab Data Labs: Lab Results 02/27/25 02/27/25 Range/Units 12:06 12:10 POC Influenza A Ag Negative (Negative) POC Influenza B Ag Negative (Negative) POC SARS CoV-2 Ag Negative (Negative) POC Grp A Strep Screen Negative (Negative) Imaging Data Radiologist's impression: EXAMINATION: XR chest 2V DATE: 02/27/2025 12:28 INDICATION: Asthma presenting with cough TECHNIQUE: PA and lateral views of the chest were obtained. COMPARISON: Chest radiograph dated 05/19/2024 and 10/19/2023 FINDINGS: The lungs remain clear with no focal airspace opacities, pulmonary edema, pleural effusion or pneumothorax. The cardiomediastinal silhouette is normal. Chronic mild anterior wedging of a couple lower thoracic vertebral bodies. IMPRESSION: 1. No acute cardiopulmonary disease. Discharge Plan Discharge Clinical Impression: Sinusitis, Asthma Patient Disposition: Home Condition: Stable Instructions: Antibiotic Form, Asthma (DC), Sinusitis (ED) Patient Language: East Timorese Prescriptions: New doxycycline hyclate 100 mg capsule 100 mg PO BID Qty: 20 0RF prednisone 50 mg tablet 50 mg PO DAILY Qty: 5 0RF No Action epinephrine [EpiPen 2-Cheko] 0.3 mg/0.3 mL auto-injector 0.3 mg IM ONCE Qty: 2 1RF Rx Instructions: as a single dose 1 box - 2 syringes per box escitalopram oxalate 10 mg tablet See Rx Instructions .ROUTE .COMPLEX Qty: 7 1RF Dose Instruction: TAKE 1 TABLET BY MOUTH DAILY FOR 6 WEEKS Rx Instructions: TAKE 1 TABLET BY MOUTH DAILY lithium carbonate 300 mg tablet 300 mg PO QHS Qty: 10 0RF lamotrigine 100 mg tablet 100 mg PO DAILY Qty: 10 0RF buspirone 15 mg tablet See Rx Instructions .ROUTE .COMPLEX Qty: 60 1RF Dose Instruction: TAKE 1 TABLET BY MOUTH TWICE DAILY. IF TOLERATING WELL AFTER 2-3 DAYS, CONTACT CLINIC FOR INCREASE. Rx Instructions: TAKE 1 TABLET BY MOUTH TWICE DAILY. IF TOLERATING WELL AFTER 2-3 DAYS, CONTACT CLINIC FOR INCREASE. albuterol sulfate 90 mcg/actuation HFA aerosol inhaler See Rx Instructions .ROUTE .COMPLEX Qty: 8.5 3RF Dose Instruction: INHALE 1 PUFF BY MOUTH EVERY 4 HOURS NEEDED FOR SHORTNESS OF BREATH OR WHEEZING Rx Instructions: INHALE 1 PUFF BY MOUTH EVERY 4 HOURS NEEDED FOR SHORTNESS OF BREATH OR WHEEZING Follow-up/Referrals: John Granda MD [Physician] - Time of Disposition: 13:03
== END 2025-02-27 13:18 | disposition home or self-care (01) ==
PROVIDERS: Emergency Provider Nurse Practitioner
DX: J32.9 Chronic sinusitis, unspecified (principal); J45.909 Unspecified asthma, uncomplicated; Z20.822 Contact with and (suspected) exposure to COVID-19; F41.9 Anxiety disorder, unspecified; F32.A Depression, unspecified
CPT/HCPCS: 71046; 87081; 87426; 87804; 87880; 99213; G0463